=== PATIENT | male | born 1965 | race American Indian/Alaskan Native ===

== ENCOUNTER 2022-08-29 12:49 | Outpatient (REF) | payer MEDICARE, MEDICAID, SELFPAY ==
--- NOTE | ~2022-08-29 | XR_ITS ---
EXAMINATION: XR ANKLE, RIGHT CLINICAL INFORMATION: Pain right ankle and joints. COMPARISON: None. TECHNIQUE: AP, lateral, and mortise views of the right ankle. FINDINGS: There is no visible acute fracture, dislocation or subluxation. No bony erosive changes. Small enthesophyte is seen along the distal fibula. The ankle mortise and subtalar joints are normal. The small calcaneal heel and retrocalcaneal enthesophyte. Minimal soft tissue swelling is seen posterior to the calcaneus. XR/XR ankle RT min 3V IMPRESSION: Small calcaneal heel and retrocalcaneal enthesophytes. Minimal soft tissue swelling posterior to the calcaneus. No visible acute fracture or dislocation seen.
== END 2022-08-29 12:50 | disposition home or self-care (01) ==
LOC: HO.HOSX 12:49
PROVIDERS: Visit Provider Physician Assistant
DX: S86.011A Strain of right Achilles tendon, initial encounter (principal); X58.XXXA Exposure to other specified factors, initial encounter; Y93.9 Activity, unspecified; Y92.9 Unspecified place or not applicable; Y99.9 Unspecified external cause status
CPT/HCPCS: 73610; 99202

== ENCOUNTER 2023-06-14 13:56 | Outpatient (AMB) | payer MEDICARE, MEDICAID, SELFPAY ==
[2023-06-14 13:59] VITALS: BP 118/72; PULSE 90; O2SAT 98; BMI 32.3
--- NOTE | 2023-06-14 13:59 | A.OFFPC_ITS ---
Vital Signs 06/14/23 13:59 Height 6 ft Weight 238 lb BMI 32.3 BP 118/72 Blood Pressure Location Lt brachial Position Sitting Pulse 90 Pulse Source Pulse Oximeter Pulse Oximetry (%) 98 Oxygen Delivery Method Room Air Intake Visit Reasons: 6 mth f/ u Business Intelligence Administrator: Not Required per policy Accompanied by: Self / Same As Patient Allergies aspirin [ASA] Allergy (Unknown, Verified 06/14/23 13:59) BLEEDING ibuprofen [From MOTRIN] Allergy (Unknown, Verified 06/14/23 13:59) BLEEDING nortriptyline [NORTRIPTYLINE] Allergy (Unknown, Verified 06/14/23 13:59) PSYCHOSIS Medication List - Last Reconciled 06/14/23 by Warner Metz MD ascorbate calcium (vitamin C) 500 mg PO BID cholecalciferol (vitamin D3) (Vitamin D3) 10 mcg PO DAILY cyclobenzaprine 10 mg PO Q8H diphenhydramine-acetaminophen 12.5-325 mg (Percogesic) tabs PO [lions gen PO] lisinopril 20 mg PO DAILY mag [id number] rt xt 500-3,000-150 mg-unit-mg tabs PO omeprazole 20 mg PO DAILY omeprazole 20 mg PO DAILY zinc gluconate 50 mg PO DAILY Tobacco use date assessed: 11/26/22 Dental Screening Dental Screen Date: 06/14/23 Did you have a dental visit in the last 12 months?: No Did you have a dental problem in the last 6 months where you did not have access to dental care?: No Was dental information given to patient?: Patient has dentist HPI 6 mth f/ u HPI Details GERD on Rx; doing well; complint [facility] Medical History (Updated 06/14/23 @ 14:28 by Warner Metz MD) Obesity Failed back syndrome Hypertension Chronic GERD COPD (chronic obstructive pulmonary disease) Surgical History History of neck surgery History of esophageal dilatation History of eye surgery History of ankle surgery History of rectal surgery H/O repair of rotator cuff Family History Father No problems noted. Mother Medical history unknown Brother Leukemia Brother Motor vehicle accident Social History (Reviewed 06/14/23 @ 14:00 by SUSHMA [place] Housing: Apartment Alcohol intake: never Patient Tobacco Use Status: Former Tobacco user Tobacco use type: Cigarette e-Cigarette/Vaping Use: Never Used Second Hand Smoke Exposure: No service: Yes Current occupational status: disabled Cognitive needs: No Hearing needs: No Vision needs: No Questionnaire PHQ-9 Over the last 2 weeks, how often have you been bothered by any of the following problems? 1. Little interest or pleasure in doing things: not at all 2. Feeling down, depressed, or hopeless: not at all 3. Trouble falling or staying asleep, or sleeping too much: not at all 4. Feeling tired or having little energy: not at all 5. Poor appetite or overeating: not at all 6. Feeling bad about yourself - or that you are a failure or have let yourself or your family down: not at all 7. Trouble concentrating on things, such as reading the newspaper or watching television: not at all 8. Moving or speaking so slowly that other people could have noticed. Or the opposite - being so fidgety or restless that you have been moving around a lot more than usual: not at all 9. Thoughts that you would be better off or of hurting yourself in some way: not at all Total score: 0 Depression Screening Interpretation: Negative 01833 - PHQ-9 Billing: Yes Source: Developed by Drs. Alex Schuster, Nathalie Ellis, Ari Mcnamara and colleagues, with an educational toña from [employer]. Thrive Questionnaire Date Thrive assessed: 11/26/22 AUDIT C Alcohol Use Questionnaire (AUDIT-C) 1. How often do you have a drink containing alcohol?: Never 3. How often do you have six or more drinks on one occasion?: Never Total Score: 0 Score Reviewed/Action Taken: Yes JOSE-7 AMB Questionnaire JOSE-7 Date JOSE - 7 assessed: 11/26/22 Source: Developed by Drs. Alex Schuster, Ari Burgos and colleagues, with an educational toña from [employer]. Review of Systems Const Denies chills, Denies headache(s) and Denies weight loss ENT Denies headache(s) Card Denies chest pain, Denies syncope, Denies irregular heart rhythm and Denies dyspnea Resp Denies chest congestion, Denies cough and Denies dyspnea GI Denies abdominal pain, Denies change in stool character, Denies nausea and Denies vomiting Musc Denies deformity and Denies joint swelling Neuro Denies syncope and Denies headache(s) Physical exam (Primary Care) Vital Signs: Last Vital Signs Pulse 90 06/14/23 13:59 BP 118/72 06/14/23 13:59 Pulse Ox 98 06/14/23 13:59 Oxygen Delivery Method Room Air 06/14/23 13:59 BMI result Body Mass Index 32.3 Tobacco/Smoking Status: Tobacco use Status Tobacco use date assessed 11/26/22 06/14/23 14:03 Patient Tobacco Use Status Former Tobacco user 06/14/23 14:03 Tobacco use type Cigarette 06/14/23 14:03 e-Cigarette/Vaping Use Never Used 06/14/23 14:03 PHQ-9: PHQ-9 Score PHQ-9: Total score 0 06/14/23 14:03 Depression Screening Interpretation: Negative Thrive Assessment: Date of Thrive Assessment Date Thrive assessed 11/26/22 06/14/23 14:03 Const General: cooperative, comfortable, no acute distress and alert Neck Neck: Yes no lymphadenopathy Thyroid: Thyroid normal Resp Effort & Inspection: normal respiratory effort Auscultation: clear to auscultation bilaterally Percussion: percussion normal Cardio Jugular venous distension: no JVD Palpation: normal PMI Rate: regular rate Rhythm: regular rhythm Heart sounds: S1 normal heart sound present and S2 normal heart sound present GI Inspection: Yes normal to inspection Palpation (GI): No hepatosplenomegaly present Skin General skin exam: no rashes or lesions noted Extrem General: Yes no clubbing, cyanosis or edema Assessment and Plan Assessment & Plan (1) Chronic GERD: Code(s): K21.9 - Gastro-esophageal reflux disease without esophagitis Plan: stable; same rx Coding Level of Care Code Est Pt Level 3 (05245) Diagnoses Chronic GERD K21.9
== END 2023-06-14 14:15 | disposition home or self-care (01) ==
PROVIDERS: PCP Internal Medicine; Visit Provider Internal Medicine
DX: K21.9 Gastro-esophageal reflux disease without esophagitis (principal)
CPT/HCPCS: 99213

== ENCOUNTER 2023-12-13 13:52 | Outpatient (AMB) | payer MEDICARE, MEDICAID, SELFPAY ==
[2023-12-13 13:53] VITALS: BP 112/62; PULSE 101; O2SAT 93; BMI 33.0
--- NOTE | 2023-12-13 13:53 | MHC.PC.OV ---
Vital Signs 12/13/23 13:53 Height 6 ft Weight 243 lb BMI 33.0 BP 112/62 Blood Pressure Location Lt brachial Position Sitting Pulse 101 H Pulse Source Pulse Oximeter Pulse Oximetry (%) 93 Oxygen Delivery Method Room Air Intake Visit Reasons: 6mth f/u Paste Up Artist Required: No Piccoloist: Not Required per policy Accompanied by: Self / Same As Patient Allergies aspirin [ASA] Allergy (Unknown, Verified 12/13/23 13:54) BLEEDING ibuprofen [From MOTRIN] Allergy (Unknown, Verified 12/13/23 13:54) BLEEDING nortriptyline [NORTRIPTYLINE] Allergy (Unknown, Verified 12/13/23 13:54) PSYCHOSIS Medication List - Last Reconciled 12/13/23 by Warner Metz MD ascorbate calcium (vitamin C) 500 mg PO BID cholecalciferol (vitamin D3) (Vitamin D3) 10 mcg PO DAILY cyclobenzaprine 10 mg PO Q8H diphenhydramine-acetaminophen 12.5-325 mg (Percogesic) tabs PO [lions gen PO] lisinopril 20 mg PO DAILY mag [id number] rt xt 500-3,000-150 mg-unit-mg tabs PO magnesium citrate 100 mg PO DAILY omeprazole 20 mg PO DAILY zinc gluconate 50 mg PO DAILY Tobacco use date assessed: 12/13/23 Dental Screening Dental Screen Date: 12/13/23 Did you have a dental visit in the last 12 months?: Yes Did you have a dental problem in the last 6 months where you did not have access to dental care?: No Was dental information given to patient?: Patient has dentist HPI 6mth f/u HPI Details HTN on Rx; PTST and needs ref for therapy; has a therapy dog [facility] Medical History (Updated 06/14/23 @ 14:28 by Warner Metz MD) Obesity Failed back syndrome Hypertension Chronic GERD COPD (chronic obstructive pulmonary disease) Surgical History History of neck surgery History of esophageal dilatation History of eye surgery History of ankle surgery History of rectal surgery H/O repair of rotator cuff Family History Father No problems noted. Mother Medical history unknown Brother Leukemia Brother Motor vehicle accident Social History Housing: Apartment Alcohol intake: never Patient Tobacco Use Status: Former Tobacco user Tobacco use type: Cigarette e-Cigarette/Vaping Use: Never Used Second Hand Smoke Exposure: No service: Yes Current occupational status: disabled Cognitive needs: No Hearing needs: No Vision needs: Yes (glasses ) Questionnaire PHQ-9 Over the last 2 weeks, how often have you been bothered by any of the following problems? 1. Little interest or pleasure in doing things: several days 2. Feeling down, depressed, or hopeless: more than half the days 3. Trouble falling or staying asleep, or sleeping too much: several days 4. Feeling tired or having little energy: more than half the days 5. Poor appetite or overeating: more than half the days 6. Feeling bad about yourself - or that you are a failure or have let yourself or your family down: several days 7. Trouble concentrating on things, such as reading the newspaper or watching television: more than half the days 8. Moving or speaking so slowly that other people could have noticed. Or the opposite - being so fidgety or restless that you have been moving around a lot more than usual: several days 9. Thoughts that you would be better off or of hurting yourself in some way: not at all Total score: 12 Depression Screening Interpretation: Positive Depression Screening Follow-up: Existing condition Depression Screening Done: Yes 10447 - PHQ-9 Billing: Yes Source: Developed by Drs. Alex Schuster, Nathalie Ellis, Ari Mcnamara and colleagues, with an educational toña from [employer]. Thrive Questionnaire Date Thrive assessed: 12/13/23 I am a: Patient What is your living situation today?: I have a steady place to live Within the past 12 months, did the food you bought not last and you didn't have the money to get more?: Never true Within the past 12 months, did you worry whether your food would run out before you got money to buy more?: Never true Do you have trouble paying for medicines?: No Do you have trouble getting transportation to medical appointments?: No Do you have trouble paying your heating and electricity bill?: No Do you have trouble taking care of your child, family member or friend?: No Do you have trouble with day-to-day activities such as bathing, preparing meals, shopping, managing finances, etc.?: No Are you currently unemployed and looking for a job?: No Are you interested in more education?: No Please select the resources that you would like help with: None THRIVE Score: 0 AUDIT C Alcohol Use Questionnaire (AUDIT-C) 1. How often do you have a drink containing alcohol?: Never 3. How often do you have six or more drinks on one occasion?: Never Total Score: 0 Score Reviewed/Action Taken: Yes JOSE-7 AMB Questionnaire JOSE-7 Date JOSE - 7 assessed: 12/13/23 Feeling nervous, anxious, or on edge: 3 = Nearly every day Not being able to stop or control worryin = More than half the days Worrying too much about different things: 1 = Several days Trouble relaxin = Several days Being so restless that it is hard to sit still: 1 = Several days Becoming easily annoyed or irritable: 3 = Nearly every day Feeling afraid as if something awful might happen: 0 = Not at all Total JOSE-7 score (0-4 normal; 5-9 mild; 10-14 moderate; 15-21 severe): 11 Source: Developed by Drs. Alex Schuster, Nathalie Ellis, Ari Mcnamara and colleagues, with an educational toña from [employer]. JOSE-7 Assessment Billing JOSE-7 Assessment Tool: JOSE-7 Assessment 39428 Review of Systems Const Denies chills, Denies headache(s) and Denies weight loss ENT Denies headache(s) Card Denies chest pain, Denies syncope, Denies irregular heart rhythm and Denies dyspnea Resp Denies chest congestion, Denies cough and Denies dyspnea GI Denies abdominal pain, Denies change in stool character, Denies nausea and Denies vomiting Musc Denies deformity and Denies joint swelling Neuro Denies syncope and Denies headache(s) Physical exam (Primary Care) Vital Signs: Last Vital Signs Pulse 101 H 12/13/23 13:53 BP 112/62 12/13/23 13:53 Pulse Ox 93 12/13/23 13:53 Oxygen Delivery Method Room Air 12/13/23 13:53 BMI result Body Mass Index 33.0 Tobacco/Smoking Status: Tobacco use Status Tobacco use date assessed 12/13/23 12/13/23 13:55 Patient Tobacco Use Status Former Tobacco user 12/13/23 13:55 Tobacco use type Cigarette 12/13/23 13:55 e-Cigarette/Vaping Use Never Used 12/13/23 13:55 PHQ-9: PHQ-9 Score PHQ-9: Total score 12 12/13/23 14:59 Depression Screening Interpretation: Positive Depression Screening Follow-up: Existing condition Thrive Assessment: Date of Thrive Assessment Date Thrive assessed 12/13/23 12/13/23 13:55 Const General: cooperative, comfortable, no acute distress and alert Neck Neck: Yes no lymphadenopathy Thyroid: Thyroid normal Resp Effort & Inspection: normal respiratory effort Auscultation: clear to auscultation bilaterally Percussion: percussion normal Cardio Jugular venous distension: no JVD Palpation: normal PMI Rate: regular rate Rhythm: regular rhythm Heart sounds: S1 normal heart sound present and S2 normal heart sound present GI Inspection: Yes normal to inspection Palpation (GI): No hepatosplenomegaly present Skin General skin exam: no rashes or lesions noted Extrem General: Yes no clubbing, cyanosis or edema Assessment and Plan Assessment & Plan (1) Hypertension: Code(s): I10 - Essential (primary) hypertension Plan: stable; same rx (2) PTSD (post-traumatic stress disorder): Code(s): F43.10 - Post-traumatic stress disorder, unspecified Plan: stble Orders: Referrals Counseling Referral F43.10 - Post-traumatic stress disorder, unspecified Coding Level of Care Code Est Pt Level 3 (29811) Diagnoses Hypertension I10 PTSD (post-traumatic stress disorder) F43.10 Additional Codes JOSE-7 Assessment Billing - JOSE-7 Assessment Tool: JOSE-7 Assessment 22600 ([id number])
== END 2023-12-13 14:38 | disposition home or self-care (01) ==
PROVIDERS: PCP Internal Medicine; Visit Provider Internal Medicine
DX: I10 Essential (primary) hypertension (principal); F43.10 Post-traumatic stress disorder, unspecified
CPT/HCPCS: 99213

== ENCOUNTER 2024-06-24 11:35 | Outpatient (AMB) | payer MEDICARE, MEDICAID, SELFPAY ==
[2024-06-24 11:36] VITALS: BP 114/72; PULSE 103; O2SAT 92; BMI 29.6
--- NOTE | 2024-06-24 11:36 | MHC.PC.OV ---
Vital Signs 06/24/24 11:36 Height 6 ft Weight 218 lb BMI 29.6 BP 114/72 Blood Pressure Location Lt brachial Position Sitting Pulse 103 H Pulse Source Pulse Oximeter Pulse Oximetry (%) 92 Oxygen Delivery Method Room Air Intake Visit Reasons: 3 month f/u Intake Note: Pt seeing therapist for PTSD. Manager Technology Required: No Accompanied by: Self / Same As Patient Allergies aspirin [ASA] Allergy (Unknown, Verified 06/24/24 11:38) BLEEDING ibuprofen [From MOTRIN] Allergy (Unknown, Verified 06/24/24 11:38) BLEEDING nortriptyline [NORTRIPTYLINE] Allergy (Unknown, Verified 06/24/24 11:38) PSYCHOSIS Medication List - Last Reconciled 06/29/24 by Warner Metz MD ascorbate calcium (vitamin C) 500 mg PO BID cholecalciferol (vitamin D3) (Vitamin D3) 10 mcg PO DAILY cyclobenzaprine 10 mg PO Q8H diphenhydramine-acetaminophen 12.5-325 mg (Percogesic) tabs PO fluticasone propionate 50 mcg/actuation (Flonase Allergy Relief) 1 spray intranasal BID [lions gen PO] lisinopril 20 mg PO DAILY magnesium carb,citrate,oxide (Magnesium Complex) mg PO omeprazole 20 mg PO DAILY zinc gluconate 50 mg PO DAILY Tobacco use date assessed: 12/13/23 Dental Screening Dental Screen Date: 12/13/23 HPI 3 month f/u HPI Details HTN on rx; doing well and compliant [facility] Medical History (Updated 06/14/23 @ 14:28 by Warner Metz MD) Obesity Failed back syndrome Hypertension Chronic GERD COPD (chronic obstructive pulmonary disease) Surgical History History of neck surgery History of esophageal dilatation History of eye surgery History of ankle surgery History of rectal surgery H/O repair of rotator cuff Family History Father No problems noted. Mother Medical history unknown Brother Leukemia Brother Motor vehicle accident Social History Housing: Apartment Alcohol intake: never Patient Tobacco Use Status: Former Tobacco user Tobacco use type: Cigarette e-Cigarette/Vaping Use: Never Used Second Hand Smoke Exposure: No service: Yes Current occupational status: disabled Cognitive needs: No Hearing needs: No Vision needs: Yes (glasses ) Questionnaire PHQ-9 Over the last 2 weeks, how often have you been bothered by any of the following problems? 1. Little interest or pleasure in doing things: several days 2. Feeling down, depressed, or hopeless: more than half the days 3. Trouble falling or staying asleep, or sleeping too much: several days 4. Feeling tired or having little energy: more than half the days 5. Poor appetite or overeating: more than half the days 6. Feeling bad about yourself - or that you are a failure or have let yourself or your family down: several days 7. Trouble concentrating on things, such as reading the newspaper or watching television: more than half the days 8. Moving or speaking so slowly that other people could have noticed. Or the opposite - being so fidgety or restless that you have been moving around a lot more than usual: several days 9. Thoughts that you would be better off or of hurting yourself in some way: not at all Total score: 12 Depression Screening Interpretation: Positive Depression Screening Follow-up: Existing condition Depression Screening Done: Yes 90015 - PHQ-9 Billing: Yes Source: Developed by Drs. Alex Schuster, Nathalie Ellis, Ari Mcnamara and colleagues, with an educational toña from [employer] [address] Thrive Questionnaire Date Thrive assessed: 12/13/23 Are you currently unemployed and looking for a job?: I choose not to answer this question AUDIT C Alcohol Use Questionnaire (AUDIT-C) 1. How often do you have a drink containing alcohol?: Never 3. How often do you have six or more drinks on one occasion?: Never Total Score: 0 Score Reviewed/Action Taken: Yes JOSE-7 AMB Questionnaire JOSE-7 Date JOSE - 7 assessed: 12/13/23 Source: Developed by Drs. Alex Schuster, Ari Burgos and colleagues, with an educational toña from [employer] [address] Review of Systems Const Denies chills, Denies headache(s) and Denies weight loss ENT Denies headache(s) Card Denies chest pain, Denies syncope, Denies irregular heart rhythm and Denies dyspnea Resp Denies chest congestion, Denies cough and Denies dyspnea GI Denies abdominal pain, Denies change in stool character, Denies nausea and Denies vomiting Musc Denies deformity and Denies joint swelling Neuro Denies syncope and Denies headache(s) Physical exam (Primary Care) Vital Signs: Last Vital Signs Pulse 103 H 06/24/24 11:36 BP 114/72 06/24/24 11:36 Pulse Ox 92 06/24/24 11:36 Oxygen Delivery Method Room Air 06/24/24 11:36 BMI result Body Mass Index 29.6 Tobacco/Smoking Status: Tobacco use Status Tobacco use date assessed 12/13/23 06/24/24 11:41 Patient Tobacco Use Status Former Tobacco user 06/24/24 11:41 Tobacco use type Cigarette 06/24/24 11:41 e-Cigarette/Vaping Use Never Used 06/24/24 11:41 PHQ-9: PHQ-9 Score PHQ-9: Total score 12 06/24/24 11:44 Depression Screening Interpretation: Positive Depression Screening Follow-up: Existing condition Thrive Assessment: Date of Thrive Assessment Date Thrive assessed 12/13/23 06/24/24 11:41 Const General: cooperative, comfortable, no acute distress and alert Neck Neck: Yes no lymphadenopathy Thyroid: Thyroid normal Resp Effort & Inspection: normal respiratory effort Auscultation: clear to auscultation bilaterally Percussion: percussion normal Cardio Jugular venous distension: no JVD Palpation: normal PMI Rate: regular rate Rhythm: regular rhythm Heart sounds: S1 normal heart sound present and S2 normal heart sound present GI Inspection: Yes normal to inspection Palpation (GI): No hepatosplenomegaly present Skin General skin exam: no rashes or lesions noted Extrem General: Yes no clubbing, cyanosis or edema Coding Level of Care Code Est Pt Level 3 (89108) Diagnoses Hypertension I10 Assessment & Plan Assessment & Plan (1) Hypertension: Code(s): I10 - Essential (primary) hypertension Category: Medical Plan: stable; same rx Medications: New fluticasone propionate 50 mcg/actuation (Flonase Allergy Relief) administer into each nostril 1 spray intranasal BID 16 grams 8RF
== END 2024-06-24 12:06 | disposition home or self-care (01) ==
PROVIDERS: PCP Internal Medicine; Visit Provider Internal Medicine
DX: I10 Essential (primary) hypertension (principal)

== ENCOUNTER → 2024-06-24 11:35 | Outpatient (BNVA) | payer MEDICARE, MEDICAID, SELFPAY | PROVIDERS: PCP Internal Medicine; Visit Provider Internal Medicine | DX: I10 Essential (primary) hypertension (principal); Z79.899 Other long term (current) drug therapy | CPT/HCPCS: 96127; 99212 ==

== ENCOUNTER 2024-11-12 13:12 | Outpatient (AMB) | payer MEDICARE, MEDICAID, SELFPAY ==
--- NOTE | 2024-11-12 13:18 | MHC.PC.OV ---
Vital Signs 11/12/24 13:19 Height 6 ft Weight 225 lb BMI 30.5 BP 130/76 Blood Pressure Location Lt brachial Position Sitting Pulse 95 Pulse Source Pulse Oximeter Temp 96.8 F Temp Source Temporal Artery Scan Pulse Oximetry (%) 95 Oxygen Delivery Method Room Air Intake Visit Reasons: 3 Month F/U Intake Note: Patient is here to follow up on HTN, COPD. 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 Required: No Foreclosure Clerk: Not Required per policy Accompanied by: Self / Same As Patient Allergies aspirin [ASA] Allergy (Unknown, Verified 11/12/24 13:19) BLEEDING ibuprofen [From MOTRIN] Allergy (Unknown, Verified 11/12/24 13:19) BLEEDING nortriptyline [NORTRIPTYLINE] Allergy (Unknown, Verified 11/12/24 13:19) PSYCHOSIS Medication List - Last Reconciled 11/12/24 by Warner Metz MD ascorbate calcium (vitamin C) 500 mg PO BID cholecalciferol (vitamin D3) (Vitamin D3) 10 mcg PO DAILY cyclobenzaprine 10 mg PO Q8H diphenhydramine-acetaminophen 12.5-325 mg (Percogesic) tabs PO fluticasone propionate 50 mcg/actuation (Flonase Allergy Relief) 1 spray intranasal BID [lions gen PO] lisinopril 20 mg PO DAILY magnesium carb,citrate,oxide (Magnesium Complex) mg PO omeprazole 20 mg PO DAILY zinc gluconate 50 mg PO DAILY Tobacco use date assessed: 11/12/24 Dental Screening Dental Screen Date: 11/12/24 Did you have a dental visit in the last 12 months?: Yes Did you have a dental problem in the last 6 months where you did not have access to dental care?: No Was dental information given to patient?: Patient has dentist HPI 3 Month F/U HPI Details HTN on rx; compliant; PTSD with interpersonal challenges [facility] Medical History (Updated 11/12/24 @ 13:54 by Warner Metz MD) Obesity Failed back syndrome Hypertension Chronic GERD COPD (chronic obstructive pulmonary disease) Surgical History History of neck surgery History of esophageal dilatation History of eye surgery History of ankle surgery History of rectal surgery H/O repair of rotator cuff Family History Father No problems noted. Mother Medical history unknown Brother Leukemia Brother Motor vehicle accident Social History Housing: Apartment Alcohol intake: never Patient Tobacco Use Status: Former Tobacco user Tobacco use type: Cigarette e-Cigarette/Vaping Use: Never Used Second Hand Smoke Exposure: Yes service: Yes Current occupational status: disabled Cognitive needs: No Hearing needs: No Vision needs: Yes (glasses ) Questionnaire PHQ-9 Over the last 2 weeks, how often have you been bothered by any of the following problems? 1. Little interest or pleasure in doing things: not at all 2. Feeling down, depressed, or hopeless: not at all 3. Trouble falling or staying asleep, or sleeping too much: not at all 4. Feeling tired or having little energy: not at all 5. Poor appetite or overeating: not at all 6. Feeling bad about yourself - or that you are a failure or have let yourself or your family down: not at all 7. Trouble concentrating on things, such as reading the newspaper or watching television: not at all 8. Moving or speaking so slowly that other people could have noticed. Or the opposite - being so fidgety or restless that you have been moving around a lot more than usual: not at all 9. Thoughts that you would be better off or of hurting yourself in some way: not at all Total score: 0 Depression Screening Interpretation: Negative Depression Screening Done: Yes Source: Developed by Drs. Alex Schuster, Nathalie Ellis, Ari Mcnamara and colleagues, with an educational toña from [employer] Thrive Questionnaire Date Thrive assessed: 11/12/24 I am a: Patient What is your living situation today?: I have a steady place to live Within the past 12 months, did the food you bought not last and you didn't have the money to get more?: Never true Within the past 12 months, did you worry whether your food would run out before you got money to buy more?: Never true Do you have trouble paying for medicines?: No Do you have trouble getting transportation to medical appointments?: No Do you have trouble paying your heating and electricity bill?: No Do you have trouble taking care of your child, family member or friend?: No Do you have trouble with day-to-day activities such as bathing, preparing meals, shopping, managing finances, etc.?: No Are you currently unemployed and looking for a job?: No Are you interested in more education?: No Please select the resources that you would like help with: None Currently or been in a relationship where the following occur: No concerns reported THRIVE Score: 0 AUDIT C Alcohol Use Questionnaire (AUDIT-C) 1. How often do you have a drink containing alcohol?: Never Total Score: 0 JOSE-7 AMB Questionnaire JOSE-7 Date JOSE - 7 assessed: 11/12/24 Feeling nervous, anxious, or on edge: 0 = Not at all Not being able to stop or control worryin = Not at all Worrying too much about different things: 0 = Not at all Trouble relaxin = Not at all Being so restless that it is hard to sit still: 0 = Not at all Becoming easily annoyed or irritable: 0 = Not at all Feeling afraid as if something awful might happen: 0 = Not at all Total JOSE-7 score (0-4 normal; 5-9 mild; 10-14 moderate; 15-21 severe): 0 Source: Developed by Drs. Alex Schuster, Nathalie Ellis, Ari Mcnamara and colleagues, with an educational toña from [employer] Review of Systems Const Denies chills, Denies headache(s) and Denies weight loss ENT Denies headache(s) Card Denies chest pain, Denies syncope, Denies irregular heart rhythm and Denies dyspnea Resp Denies chest congestion, Denies cough and Denies dyspnea GI Denies abdominal pain, Denies change in stool character, Denies nausea and Denies vomiting Musc Denies deformity and Denies joint swelling Neuro Denies syncope and Denies headache(s) Physical exam (Primary Care) Vital Signs: Last Vital Signs Temp 96.8 F 11/12/24 13:19 Pulse 95 11/12/24 13:19 BP 130/76 11/12/24 13:19 Pulse Ox 95 11/12/24 13:19 Oxygen Delivery Method Room Air 11/12/24 13:19 BMI result Body Mass Index 30.5 Tobacco/Smoking Status: Tobacco use Status Tobacco use date assessed 11/12/24 11/12/24 13:22 Patient Tobacco Use Status Former Tobacco user 11/12/24 13:22 Tobacco use type Cigarette 11/12/24 13:22 e-Cigarette/Vaping Use Never Used 11/12/24 13:22 PHQ-9: PHQ-9 Score PHQ-9: Total score 0 11/12/24 13:22 Depression Screening Interpretation: Negative Thrive Assessment: Date of Thrive Assessment Date Thrive assessed 11/12/24 11/12/24 13:22 Currently or been in a relationship where the following occur: No concerns reported Const General: cooperative, comfortable, no acute distress and alert Neck Neck: Yes no lymphadenopathy Thyroid: Thyroid normal Resp Effort & Inspection: normal respiratory effort Auscultation: clear to auscultation bilaterally Percussion: percussion normal Cardio Jugular venous distension: no JVD Palpation: normal PMI Rate: regular rate Rhythm: regular rhythm Heart sounds: S1 normal heart sound present and S2 normal heart sound present GI Inspection: Yes normal to inspection Palpation (GI): No hepatosplenomegaly present Skin General skin exam: no rashes or lesions noted Extrem General: Yes no clubbing, cyanosis or edema Coding Level of Care Code Est Pt Level 3 (13826) Diagnoses Hypertension I10 PTSD (post-traumatic stress disorder) F43.10 Assessment & Plan Assessment & Plan (1) Hypertension: Code(s): I10 - Essential (primary) hypertension Category: Medical Plan: stable; same rx (2) PTSD (post-traumatic stress disorder): Code(s): F43.10 - Post-traumatic stress disorder, unspecified Category: Medical Plan: stable; controlled at present
[2024-11-12 13:19] VITALS: BP 130/76; PULSE 95; TEMP 36; O2SAT 95; BMI 30.5
--- OUTSIDE RECORDS SUMMARY | 2024-11-12 14:06 | XMS_ITS | Clinical Summary ---
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 Role Phone Unavailable Primary Care Provider Unavailabl e Social History Tobacco Use Types Packs/Day Years Used Date Smoking Tobacco: Never Assessed Sex and Gender Information Value Date Recorded Sex Assigned at Not on file Legal Sex Male 2:51 PM EST Gender Identity Not on file Sexual Orientation Not on file Plan of Treatment Health Maintenance Due Date Last Done Comments DTaP,Tdap,and Td Vaccines (1 - Tdap) 1985 Hepatitis B Vaccines (1 of 3 - 19+ 3-dose series) 1985 Pneumococcal Vaccine: 50+ Ye ars (1 of 1 - PCV) 02/15/2016 Zoster Vaccines (1 of 2) 02/15/2016 COVID-19 Vaccine (2023-2 5 season) 2024 Influenza Vaccine (#1) 2024 HIB Vaccines Aged Out No longer eligi ble based on patient's age to complete this topic HPV Vaccines Aged Out No longer eligi ble based on patient's age to complete this topic Hepatitis A Vaccines Aged Out No long er eligible based on patient's age to complete this topic IPV Vaccines Aged Out No longer eligi ble based on patient's age to complete this topic MMR Vaccines Aged Out No longer eligi ble based on patient's age to complete this topic Meningococcal ACWY Vaccine Aged Out N o longer eligible based on patient's age to complete this topic Meningococcal B Vacine Aged Out No lo nger eligible based on patient's age to complete this topic Pneumococcal Vaccine: Pediat rics (0 to 5 Years) and At-Risk Patients (6 to 64 Years) Aged Out No longer eligible b ased on patient's age to complete this topic RSV Immunization Patients Un nickie 20 months Aged Out No longer eligible b ased on patient's age to complete this topic Varicella Vaccines Aged Out No longer eligible based on patient's age to complete this topic
== END 2024-11-12 13:56 | disposition home or self-care (01) ==
PROVIDERS: PCP Internal Medicine; Visit Provider Internal Medicine
DX: I10 Essential (primary) hypertension (principal); F43.10 Post-traumatic stress disorder, unspecified

== ENCOUNTER → 2024-11-12 13:12 | Outpatient (BNVA) | payer MEDICARE, MEDICAID, SELFPAY | PROVIDERS: PCP Internal Medicine; Visit Provider Internal Medicine | DX: I10 Essential (primary) hypertension (principal); F43.10 Post-traumatic stress disorder, unspecified | CPT/HCPCS: 99212 ==

== ENCOUNTER 2025-05-11 14:29 | Outpatient (AMB) | payer MEDICARE, MEDICAID, SELFPAY ==
--- OUTSIDE RECORDS SUMMARY | 2025-05-06 17:30 | XMS_ITS | Continuity of Care Document ---
Author Organization [facility] Address [address] [place] [address]- Care Team Providers Care Classified Advertising Supervisor Name Role Phone Warner Metz MD Primary Care Physician Encounter [facility] Date(s): 05/01/25 - 05/06/[address] [id number] Discharge Disposition: A-D/C Home Attending Physician: Marion Vizcarra MD Admitting Physician: Carissa Light MD Referring Physician: Not on Staff, Referring MD Encounter Type: Disch IP Allergies, Adverse Reactions, Alerts Substance Criticality Severity Reaction Reaction Severity Status ibuprofen 1 ulcers Active nortriptyline psychotic Active aspirin 2 ulcers Active Other Environmental Allergy watery eyes, sneezing Active Aleve Active 1all NSAIDS give extreme gi upset 2hx ulcers. vomits blood when on asa rx Medications Alcohol Pads See Instructions, # 200 each, Refills 0, Tot. Refills 0, Maintenance, Use twice a day during blood glucose check., 05/05/25 10:02:00 AM EDT, Compound, 183, cm, 05/05/25 7:35:00 EDT, Height, 95.1, kg, 05/02/25 0:14:00 EDT, Dry Weight Start Date: 05/05/25 Stop Date: 06/04/25 Status: Ordered Quantity: 200.0 Unit: each Repeat number: 1 cefpodoxime 200 mg oral tablet = 200 mg, By Mouth, Every 12 hours, for 5 days, # 10 tablet, 0 Refills, Acute 05/10/25 10:00:00 AM EDT, 05/05/25 10:00:00 AM EDT, Tablet, [facility]/pharmacy #[id number], Partial fill upon patient request if the prescription is for a schedule II opioid drug., 183, cm, 05/05/25 7:35:00 EDT, Height, 95.1, kg, 05/02/25 0:14:00 EDT, Dry Weight Start Date: 05/05/25 Stop Date: 05/10/25 Status: Ordered Quantity: 10.0 Unit: tablet Repeat number: 1 cyclobenzaprine 10 mg oral tablet 10 mg, 1, tablet, By Mouth, 3 times a day, PRN, # 30 tablet, Refills 0, Maintenance, for spasm, 09/10/17 10:40:06 AM EST Start Date: 09/10/17 Status: Ordered Quantity: 30.0 Unit: tablet Repeat number: 1 Farxiga 10 mg oral tablet 1 tablet = 10 mg, By Mouth, Daily, # 30 tablet, 2 Refills, Maintenance, 05/05/25 10:12:00 AM EDT, Tablet, [facility]/pharmacy #[id number], Partial fill upon patient request if the prescription is for a schedule IIopioid drug., 183, cm, 05/05/25 7:35:00 EDT, Height, 95.1, kg, 05/02/25 0:14:00 EDT, Dry Weight Start Date: 05/05/25 Status: Ordered Quantity: 30.0 Unit: tablet Repeat number: 3 fluticasone 27.5 mcg/inh nasal spray 1 sprays = 27.5 mcg, Nares, Both, Daily, PRN for allergy symptoms, # 10 Gm, 0 Refills, Maintenance,05/02/25 1:52:00 AM EDT, [place], Partial fill upon patient request if the prescription is for a schedule II opioid drug. Start Date: 05/02/25 Status: Ordered Quantity: 10.0 Unit: g Repeat number: 1 fluticasone-vilanterol 200 mcg-25 mcg/inh inhalation powder 1 inhalation, Inhalation, Daily, at the same time every day, # 1 each, 2 Refills, Maintenance, 05/05/25 10:14:00 AM EDT, Powder, [facility]/pharmacy #[id number], Partial fill upon patient request if the prescription is for a schedule II opioid drug., 1 inhalation Inhalation Daily,x30 days,Instr:at the same time e very day, 183, cm, 05/05/25 7:35:00 EDT, Height, 95.1, kg, 05/02/25 0:14:00 EDT, Dry Weight Start Date: 05/05/25 Stop Date: 08/03/25 Status: Ordered Quantity: 1.0 Unit: each Repeat number: 3 Freestyle Lancets See Instructions, # 100 each, Refills 1, Tot. Refills 1, Maintenance, Use twice a day for blood glucose check., 05/05/25 10:02:00 AM EDT, Supply, 183, cm, 05/05/25 7:35:00 EDT, Height, 95.1, kg, 05/02/25 0:14:00 EDT, Dry Weight Start Date: 05/05/25 Stop Date: 07/04/25 Status: Ordered Quantity: 100.0 Unit: each Repeat number: 2 Freestyle Lite Monitor See Instructions, # 1 each, Refills 0, Tot. Refills 0, Maintenance, use as directed for Type 2 Diabetes Mellitus, 05/05/25 10:02:00 AM EDT, Supply, 183, cm, 05/05/25 7:35:00 EDT, Height, 95.1, kg, 05/02/25 0:14:00 EDT, Dry Weight Start Date: 05/05/25 Stop Date: 06/04/25 Status: Ordered Quantity: 1.0 Unit: each Repeat number: 1 Freestyle Lite Test Strips See Instructions, # 100 each, Tot. Refills 5, Maintenance, Use twice a day for blood glucose check., 05/05/25 10:02:00 AM EDT, Supply, 183, cm, 05/05/25 7:35:00 EDT, Height, 95.1, kg, 05/02/25 0:14:00EDT, Dry Weight Start Date: 05/05/25 Stop Date: 06/04/25 Status: Ordered Quantity: 100.0 Unit: each Repeat number: 6 Lansaraus Solostar Pen 100 units/mL subcutaneous solution = 10 units, Subcutaneous Injection, Daily at bedtime, # 10 mL, 2 Refills, Maintenance, 05/05/25 10:12:00 AM EDT, Solution, [facility]/pharmacy #[id number], Partial fill upon patient request if the prescription is for a schedule II opioid drug., 183, cm, 05/05/25 7:35:00 EDT, Height, 95.1, kg, 05/02/25 0:14:00 EDT, Dry Weight Start Date: 05/05/25 Status: Ordered Quantity: 10.0 Unit: mL Repeat number: 3 Lasix 20 mg oral tablet 20 mg, 1, tablet, By Mouth, Daily, # 30 tablet, Refills 0, Tot. Refills 0, Maintenance, 05/06/25 1:07:00 PM EDT, Route to Pharmacy Electronically, [facility]/pharmacy #[id number], Partial fill upon patient requestif the prescription is for a schedule II opioid drug., 183, cm, 05/05/25 19:33:00 EDT, Height, 95.1, kg, 05/02/25 0:14:00 EDT, Dry Weight Start Date: 05/06/25 Status: Ordered Quantity: 30.0 Unit: tablet Repeat number: 1 lisinopril 20 mg oral tablet 20 mg, 1, tablet, By Mouth, Daily, # 30 tablet, Refills 0, Maintenance, 05/02/25 1:48:00 AM EDT, Partial fill upon patient request if the prescription is for a schedule II opioid drug. Start Date: 05/02/25 Status: Ordered Quantity: 30.0 Unit: tablet Repeat number: 1 omeprazole 20 mg oral delayed release tablet 1 tablet = 20 mg, By Mouth, Daily, # 90 tablet, 0 Refills, Maintenance, 05/02/25 1:50:00 AM EDT, CR Tablet, Partial fill upon patient request if the prescription is for a schedule II opioid drug. Start Date: 05/02/25 Status: Ordered Quantity: 90.0 Unit: tablet Repeat number: 1 Pen [place], 31 G x 8 mm BD Ultra Fine III See Instructions, # 100 each, Refills 1, Tot. Refills 1, Maintenance, Use twice a day for blood glucose check., 05/05/25 10:02:00 AM EDT, Supply, 183, cm, 05/05/25 7:35:00 EDT, Height, 95.1, kg, 05/02/25 0:14:00 EDT, Dry Weight Start Date: 05/05/25 Stop Date: 07/04/25 Status: Ordered Quantity: 100.0 Unit: each Repeat number: 2 predniSONE 10 mg oral tablet See Instructions, 30 mg for 3 days then 20 mg for 3 days then 10 mg for 3 days then stop., # 18 tablet, 0 Refills, Maintenance, 05/06/25 1:07:00 PM EDT, Tablet, [facility]/pharmacy #[id number], Partial fill upon patient request if the prescription is for a schedule II opioid drug., 183, cm, 05/05/25 19:33:00 EDT, Height, 95.1, kg, 05/02/25 0:14:00 EDT, Dry Weight Start Date: 05/06/25 Status: Ordered Quantity: 18.0 Unit: tablet Repeat number: 1 ProAir HFA 90 mcg/inh inhalation aerosol 1 inhalation = 90 mcg, Inhalation, Every 6 hours, PRN as needed for shortness of breath or wheezing, # 18 Gm, 0 Refills, Maintenance, 05/05/25 10:14:00 AM EDT, Aerosol, [facility]/pharmacy #[id number], Partial fill upon patient request if the prescription is for a schedule II opioid drug., 1 inhalation Inhalation Every 6 hours,PRN:as needed for shortness of breath or wheezing, 183, cm, 05/05/25 7:35:00 EDT, Height, 95.1, kg, 05/02/25 0:14:00 EDT, Dry Weight Start Date: 05/05/25 Status: Ordered Quantity: 18.0 Unit: g Repeat number: 1 Vitamin C 500 mg oral tablet 1 tablet = 500 mg, By Mouth, Daily, # 30 tablet, 0 Refills, Maintenance, 09/10/17 10:39:07 AM EST, Tablet Start Date: 09/10/17 Status: Ordered Quantity: 30.0 Unit: tablet Repeat number: 1 Vitamin D3 1000 intl units oral capsule 1 capsule = 1,000 International_Units, By Mouth, Daily, # 75 capsule, 0 Refills, Maintenance, 09/10/17 10:38:58 AM EST, Capsule Start Date: 09/10/17 Status: Ordered Quantity: 75.0 Unit: capsule Repeat number: 1 Problem List Condition Confirmation Course Effective Dates Status Health St atus Informant Multiple joint pain Confirmed Active Myofascial pain syndrome Confirmed Active Results Radiology Reports * Exam Date Time Procedure Performing Provider Status 05/03/25 9:00 PM US Doppler Ext Lower Venous Bilat Auth (Verified) Notes: (US Doppler Ext Lower Venous Bilat) Reason For Exam: Swelling Extremities RESULT: US Doppler Ext Lower Venous Bilat US Doppler Ext Lower Venous Bilat Reason: Swelling Extremities; Clinical Question(s): Thrombosis COMPARISON: None IMAGING TECHNIQUE: Ultrasound of the veins from the groin through the calf was performed using grayscale, color, and spectral Doppler ultrasound assessing for complete compressibility and normal flowcharacteristics. FINDINGS: RIGHT LOWER EXTREMITY: Common femoral vein: Patent. No thrombosis. Femoral vein: Patent. No thrombosis. Popliteal vein: Patent. No thrombosis. Gastrocnemius veins: The visualized portions are patent without evidence of thrombosis. Peroneal veins: The visualized portions are patent without evidence of thrombosis. Posterior tibial veins: The visualized portions are patent without evidence of thrombosis. LEFT LOWER EXTREMITY: Common femoral vein: Patent. No thrombosis. Femoral vein: Patent. No thrombosis. Popliteal vein: Patent. No thrombosis. Gastrocnemius veins: The visualized portions are patent without evidence of thrombosis. Peroneal veins: The visualized portions are patent without evidence of thrombosis. Posterior tibial veins: The visualized portions are patent without evidence of thrombosis. OTHER FINDINGS: There is diffuse edema. IMPRESSION: No evidence of deep venous thrombosis. WSN: [id number] Ordering Physician: Felipa Ruiz Dictated By: Alex Rivero DO Dictated Date/Time: 05/03/25 9:28 pm Reviewed By: Alex Rivero DO Signed By: Alex Rivero DO Signed Date/Time: 05/03/25 9:28 pm Transcribed By: MELLISSA Transcribed Date/Time: 05/03/25 9:27 pm * Exam Date Time Procedure Performing Provider Status 05/02/25 7:[address] Angio Chest Modified Notes: (CT Angio Chest) Reason For Exam: PE Suspected, Intermediate Prob, Positive D-Dimer;Other: RESULT: CT Angio Chest CT Angio Chest INDICATION: Positive D-Dimer; Clinical Question(s): Pulmonary Embolism; TECHNIQUE: Spiral CTA of the chest was performed after rapid IV contrast administration without cardiac gating, triggered by an [place] on the main pulmonary artery. Images are formatted in multiple planes using 2-D multiplanar and 3-D maximum intensity projection. 100 cc of Isovue 300 was administered intravenously. Weight-based protocol using automatic tube modulation was used to optimize exposure parameters. CTDIvol Body: 12.04 mGy, DLP Body: 1347 mGy*cm. COMPARISONS: 06/17/2018. ANGIOGRAPHIC FINDINGS: Exam is of somewhat limited diagnostic quality due to patient respiratory motion and suboptimal bolus timing. No evidence of a central through lobar pulmonary embolism. Segmental and subsegmental emboli are difficult to exclude although none are identified. No aneurysm or acute aortic abnormality seen on this study performed without cardiac gating. NON-ANGIOGRAPHIC FINDINGS: Trachea and airways: Patent without evidence of tracheal or endobronchial lesion. Lungs and pleura: Diffuse increase in interstitial markings and groundglass opacities throughout the lungs bilaterally with underlying emphysematous changes. No effusion or pneumothorax. Mediastinum and rosanne: Borderline enlarged mediastinal nodes are new/increasing compared to previous, one of the largest is the subcarinal node measuring up to 1.8 cm short axis dimension on axial image 53 of series 5. Heart: Normal heart size. No pericardial effusion. Moderate coronary artery calcification. Chest wall soft tissues: No acute abnormality. Upper abdomen: No acute abnormality. Diffuse hepatic steatosis. Bones: No acute abnormalities, no suspicious osseous lesions. IMPRESSION: 1. Limited diagnostic quality exam due to respiratory motion without evidence of a central through lobar pulmonary embolism. Segmental and subsegmental emboli are not excluded on this examination. 2. Diffuse airspace and interstitial opacities, differential includes pneumonitis or pulmonary edema pattern. However no pleural effusions are identified. 3. Multiple mildly enlarged mediastinal nodes may be reactive. 4. Other chronic findings as noted. WSN: [id number] Ordering Physician: Yadira Sanders Dictated By: Eduard Larios MD Dictated Date/Time: 05/02/25 7:47 pm Reviewed By: Eduard Larios MD Signed By: Eduard Larios MD Signed Date/Time: 05/02/25 7:47 pm Transcribed By: MELLISSA Transcribed Date/Time: 05/02/25 7:40 pm * Exam Date Time Procedure Performing Provider Status 05/01/25 4:47 PM Chest 2 Views Frontal and Lat Auth (Verified) Notes: (Chest 2 Views Frontal and Lat) Reason For Exam: Shortness of Breath RESULT: Chest 2 Views Frontal and Lat Chest 2 Views Frontal and Lat Hx of Present Illness: 1 week SOB, known COPD hx, today wanted to be seen, thinks smoke in air may have aggravated his breathing; Reason: Shortness of Breath; Clinical Question(s): CHF COMPARISON: None. FINDINGS: Patchy opacities bilaterally with more dense opacification in the right lung base. No significant pleural effusion. No pneumothorax. IMPRESSION: Suspected vascular congestion but possible superimposed pneumonia in the right lung base. WSN: [id number] Ordering Physician: Brad Aguirre Dictated By: Pietro Guerra MD Dictated Date/Time: 05/01/25 5:05 pm Reviewed By: Pietro Guerra MD Signed By: Pietro Guerra MD Signed Date/Time: 05/01/25 5:05 pm Transcribed By: MELLISSA Transcribed Date/Time: 05/01/25 4:50 pm Social History Social History Type Response Smoking Status Current every day sm oker; Tobacco user in household: No; Type: Cigarettes; Tobacco use times per day: 3-5 cigarettes per day; entered on: 09/10/17 Sex Sex Representation Male (finding) History and physical note * Kuldeep PHELPS, Carissa: PERFORM, MODIFY Event Display: History and Physical Hospital Authored Date: Patient: ??SHAWNA STARK ? Age:??60 Years?Sex:??Male?:??1965?? Chief Complaint/Reason for Consultation 1 week SOB, known COPD hx, today wanted to be seen, thinks smoke in air may have aggravated his breathing History of Present Illness ?? Patient??is a 60-year-old male with a history of COPD, fibromyalgia, reflex sympathetic dystrophy, coronary artery disease, and alcoholism in remission presenting with shortness for the past??week.? The patient has been experiencing shortness of breath for the past week, that was slow in??onset, progressive which he attributes to his COPD. Initially patient thought it may be secondary to the poor air quality.??In ED patient reported worsening shortness of breath especially with exertion. ??Informs that he cannot lay flat??properly.?He also reports waking up short of breath and noticing swelling in his legs. He has not had any fevers but did experience cold sweats today. ??Patient reports that he has been hydrating himself well.patient informed that in remote past he??was??previously on Lasix but had to be hospitalized for 2 weeks due to severe potassium depletion.?He quit smoking after being diagnosed with COPD??patient also volunteered information that. 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 Denies any??palpitations, bleeding seizures or loss of consciousness. ?? Vitals reviewed hemodynamically stable heart rate 115/min, saturating 97% on 4 L of nasal cannula oxygen. ?? Labs reviewed normal serum sodium normal potassium bicarbonate within acceptable range serum glucose 339 mg/dL. ?? Imaging studies reviewed IMPRESSION: Chest x-ray shows Suspected vascular congestion but possible superimposed pneumonia in the right lung base. ?? In ED patient received vancomycin and azithromycin.?? He also received 1 dose of 40 mg Lasix IV sb dose of Zosyn. ?? Admitted to medicine for further diagnosis and management. Review of Systems ?? General +: Fatigue, Malaise. ??Denies: Chills HEENT Denies: Head trauma, Visual Changes, Eye Pain, Ear Pain Pulmonary Positive for cough and shortness of breath. Cardiovascular Denies: Chest Pain, Palpitations, Edema.?? Gastrointestinal Denies: Nausea, Vomiting, Abdominal Pain, Diarrhea, Constipation, Melena.?? Genitourinary Denies: Burning, Dysuria, Discharge, Hematuria Musculoskeletal Denies: Neck Pain, Shoulder Pain, Arm Pain. Neurological Denies: Weakness, Numbness, Change in Speech, loss of consciousness.?? Skin: Denies: Discoloration, rash?? Psych Denies: Depression, suicidal ideation Objective Vital Signs?? Temperature: 98.1 DegF (05/01/25 15:00:00) Temperature Route: Oral (05/01/25 15:00:00) Pulse Rate:??115 bpm??High (05/01/25 15:00:00) Respiratory Rate:??31 br/min??High (05/01/25 15:00:00) Systolic Blood Pressure: 107 mm Hg (05/01/25 15:00:00) Diastolic Blood Pressure: 79 mm Hg (05/01/25 15:00:00) Pulse Pressure: 28 mm Hg (05/01/25 15:00:00) Oxygen Saturation: 97 % (05/01/25 15:12:00) Liters per Minute: 4 L/min (05/01/25 15:12:00) Mode of Delivery (Oxygen): Nasal cannula (05/01/25 15:12:00) ? Intake/Output? No Data Available ? Physical Exam General Appearance: Alert, Oriented, ??in no distress??on supplemental nasal cannula oxygen HEENT: No Thyromegaly, No JVD Lungs: ??Breath sounds Audible equal B/L,??faint audible crackles??bilateral, bronchial breath sounds right lower base Cardiovascular: Regular Rate, Normal S1, Normal S2. Abdomen: Soft, Non distended, No tenderness. Assessment/Plan Hypoxic respiratory failure (J96.91): CAP (community acquired pneumonia) (J18.9):?? Mild??COPD exacerbation (J44.1):?? Suspect??CHF (congestive heart failure) (I50.9):?? Briefly patient presents with??shortness of breath, no fever, white cell count elevated to 15.3.?? Gives history of orthopnea and PND but??proBNP??only 69. Chest x-ray more consistent with right??sided??process??suspicious for pneumonia, overall??congested appearing??hinting towards pulmonary edema. Patient has history of smoking??known COPD??although no??wheezing audible on physical exam.?? Will manage with??IV antibiotics ceftriaxone azithromycin.?? Urine Legionella strep antigen sputum culture. Nebulization pulmonary support??additional Lasix echocardiogram has been requested Daily weight intake output monitoring??low-salt diet.?? Given history of exposures To sick coworkers??check respiratory viral panel including flu AB RSV COVID-19. Taper off oxygen astolerated??to maintain saturation of 92%.. ?? Fibromyalgia (M79.7):??. Continue home medications gabapentin and Flexeril. ?? VTE Prophylaxis:??. Subcu Lovenox ?? Tobacco Use Treatment:??. As needed nicotine patch ?? Discharge Planning:??. ?? Ongoing Medical Necessity:??. ?? Code Status:??. Full code ? Histories Allergies Allergies ?(Active and Proposed Allergies Only) nortriptyline? (Severity: Unknown severity, Onset: Unknown) ?Reactions: psychotic Aleve? (Severity: Unknown severity, Onset: Unknown) Other Environmental Allergy? (Severity: Unknown severity, Onset: Unknown) ?Reactions: watery eyes, sneezing ibuprofen? (Severity: Unknown severity, Onset: Unknown) ?Reactions: ulcers ?Comments: all NSAIDS give extreme gi upset aspirin? (Severity: Unknown severity, Onset: Unknown) ?Reactions: ulcers ?Comments: hx ulcers. vomits blood when on asa rx ? Past Medical History/Problem List Active Problems(2) Multiple joint pain Myofascial pain syndrome ? Past Surgical History No surgery history documented. ? Social History Alcohol Details:??Use: Never. Substance Abuse Details:??Use: Never. Tobacco Details:??Current every day smoker, Tobacco user in household: No. ??Type: Cigarettes. ??Tobacco use times per day: 3-5 cigarettes per day. ? Family History No Family History documented. ? Medications Home Medications Ascorbic Acid (Vitamin C 500 mg oral tablet)??1 tab(s) 500 Milligram By Mouth Daily Cholecalciferol (Vitamin D3 1000 intl units oral capsule)??1 capsule 1,000 International Unit By Mouth Daily Cyclobenzaprine (cyclobenzaprine 10 mg oral tablet)??10 Milligram 1 tablet By Mouth 3 times a day as needed for spasm Gabapentin??200 Milligram By Mouth 2 tablets in the am ? Results Recent Labs BLOOD COUNT & DIFF WBC 15.3 k/mm3 (High)?? 05/01/2025 15:44 RBC 5.11 m/mm3 ()?? 05/01/2025 15:44 Hgb 14.4 Gm/dL ()?? 05/01/2025 15:44 Hct 44.1 % ()?? 05/01/2025 15:44 MCV 86.3 femtoliters ()?? 05/01/2025 15:44 MCH 28.2 pg ()?? 05/01/2025 15:44 MCHC 32.7 Gm/dL (Low)?? 05/01/2025 15:44 Platelet Count 360 k/mm3 ()?? 05/01/2025 15:44 RDW-SD 41.0 femtoliters ()?? 05/01/2025 15:44 MPV 10.9 femtoliters ()?? 05/01/2025 15:44 Nucleated RBC (Automated) 0.0 #/100 WBC'S ()?? 05/01/2025 15:44 Abs. NRBC 0.0 k/mm3 ()?? 05/01/2025 15:44 Abs. Neut 13.0 k/mm3 (High)?? 05/01/2025 15:44 Abs. Lymph 1.1 k/mm3 ()?? 05/01/2025 15:44 Abs. [place] 1.0 k/mm3 ()?? 05/01/2025 15:44 Abs. Eo 0.1 k/mm3 ()?? 05/01/2025 15:44 Abs. Baso 0.0 k/mm3 ()?? 05/01/2025 15:44 Neut % 84.6 % (High)?? 05/01/2025 15:44 Lymph % 7.3 % (Low)?? 05/01/2025 15:44 [place] % 6.6 % ()?? 05/01/2025 15:44 Eos % 0.5 % ()?? 05/01/2025 15:44 Baso % 0.3 % ()?? 05/01/2025 15:44 Imm Gran 0.7 % ()?? 05/01/2025 15:44 Abs. Imm Gran 0.1 k/mm3 ()?? 05/01/2025 15:44 ?? CARDIAC Nt-Probnp 69 pg/mL ()?? 05/01/2025 15:44 High Sensitivity Troponin (HSTnT) 16 ng/L ()?? 05/01/2025 15:44 ?? CHEM GENERAL Sodium 134 mmol/L ()?? 05/01/2025 15:44 Potassium 4.7 mmol/L ()?? 05/01/2025 15:44 Chloride 95 mmol/L (Low)?? 05/01/2025 15:44 Bicarbonate Level 23 mmol/L ()?? 05/01/2025 15:44 Anion Gap 16 mmol/L ()?? 05/01/2025 15:44 Glucose Level 339 mg/dL (High)?? 05/01/2025 15:44 BUN 10 mg/dL ()?? 05/01/2025 15:44 Creatinine-Blood 0.98 mg/dL ()?? 05/01/2025 15:44 Estimated GFR Creatinine 89 ML/MIN/1.73 M2 ()?? 05/01/2025 15:44 Calcium 8.5 mg/dL (Low)?? 05/01/2025 15:44 Protein, Total 7.2 Gm/dL ()?? 05/01/2025 15:44 Albumin 3.6 Gm/dL ()?? 05/01/2025 15:44 AG Ratio 1.0 ()?? 05/01/2025 15:44 Alkaline Phosphatase 90 units/L ()?? 05/01/2025 15:44 AST (SGOT) 12 units/L ()?? 05/01/2025 15:44 ALT (SGPT) 9 units/L ()?? 05/01/2025 15:44 Bilirubin, Total 0.4 mg/dL ()?? 05/01/2025 15:44 Lactate 1.7 mmol/L ()?? 05/01/2025 15:44 ?? HEME OTHER Hold Blue Top SPECIMEN DISCARDED AFTER 4 HOURS. ()?? 05/01/2025 15:44 ?? MISC. CHEMISTRY Hold Gel Top SPECIMEN DISCARDED AFTER 1 WEEK ()?? 05/01/2025 15:44 ?? URINE OTHER Est Creatinine Clearance 89.21 mL/min ()?? 05/01/2025 16:16 ? EKG study * Event Display: EKG Authored Date: * Event Display: ECG 12-Lead Authored Date: Please click on pdf link to open report * Event Display: ECG 12-Lead Authored Date: Ventricular Rate: 116 BPM Atrial Rate: 116 BPM P-R Interval: 158 ms QRS Duration: 90 ms Q-T Interval: 328 ms QTC Calculation(Bazett): 455 ms P [place]: 46 degrees R [place]: 26 degrees T [place]: 33 degrees Sinus tachycardia Otherwise normal ECG When compared with ECG of 20-Jun-2006 10:28, No significant change was found Confirmed by KING REYEZ MD ([id number]) on 05/04/2025 8:57:49 PM [place]: KING REYEZ MD Heart * Event Display: Echocardiogram - Complete Authored Date: Transthoracic Echocardiography Report (TTE) Patient Demographics Patient Name SHAWNA STARK Date of Study 05/03/2025 Corporate Gender Male Facility Race .[id number] Ethnicity Date of 1965 Height: 72 inches Age 60 year(s) Weight: 200 pounds Accession Number [id number] BSA: 2.13 m2 Room Number EDHX BMI: 27.13 kg/m2 Referring Kuldeep Ferrer MD Interpreting Rowan Valles Physician Physician Paul PHELPS [address] Worker [employer] [facility] Susan Indications Heart failure. Study Data Type of Study TTE procedure:Echo Complete-(Doppler, Colorflow) with Contrast. Study Date05/03/2025 Start Time: 01:22 PM Study Location: [facility] Echo Study Status: Bedside Patient Status: Routine Technical Quality: Technically difficult due to body habitus. Blood Pressure:107/74 mmHg EKG: Sinus tachycardia Variable [id number] Contrast Medium: Definity. Amount - 2 ml 2D Measurements LV Diastolic Dimension: 4.4 cm LV Systolic Dimension: 3.7 cm LV Septum Diastolic: 1.4 cm LV PW Diastolic: 1.4 cm LA Dimension: 3.5 cm LA ESV (BP):39.8 ml LVOT Stroke Volume: 120.7 ml LA ESV Index: 19 ml/m2 Stroke Volume Index56.67 ml/m2 LVOT: 3.1 cm Ascending Aorta:3.9 cm Doppler Measurements AV Peak Velocity: 118 cm/s AV Peak Gradient: 5.57 mmHg AV Mean Gradient: 3 mmHg MV Mean Gradient: 3 mmHg AV VTI:16.9 cm MV Area (continuity): 6.57 cm2 LVOT Peak Velocity: 77 cm/s LVOT VTI16 cm AV Area (Continuity):7.14 cm2 PV Peak Velocity: 84.2 cm/s AV P1/2t: 478 msec PV Peak Gradient: 2.84 mmHg TR Velocity:61.1 cm/s TR Gradient:1.49 mmHg E' Septal Velocity: 6.74 cm/s E' Lateral Velocity: 9.9 cm/s Cardiac Anatomy Left Ventricle/Interventricular Septum The left ventricular size is normal. The left ventricular wall thickness is mildly increased. The left ventricular ejection fraction is 55% by bi-plane Small's method. No obvious wall motion abnormalities seen on limited views. Unable to assess diastolic function due to E/A fusion . Left Atrium/Interatrial Septum The left atrium is normal in size. Aortic Valve The aortic valve is tricuspid. There is no aortic stenosis . There is trace aortic regurgitation. Mitral Valve The mitral valve is normal in structure and function. There is trace mitral regurgitation. Aorta The aortic root and proximal ascending aorta are normal in size when indexed for BSA Right Ventricle The right ventricular size and function appears grossly normal. Right Atrium The right atrium is normal in size. Pulmonic Valve The pulmonic valve is not well visualized. There is no pulmonic stenosis; trace insufficiency. Tricuspid Valve The tricuspid valve is normal in structure and function. There is trace regurgitation. Pumonary Artery An accurate pulmonary artery pressure could not be obtained. Venous Structures The inferior vena cava is poorly visualized. Pericardium/Extracardiac There is no significant pericardial effusion. Summary The left ventricular size is normal. The left ventricular wall thickness is mildly increased. The left ventricular ejection fraction is 55% by bi-plane Small's method. No obvious wall motion abnormalities seen on limited views. Unable to assess diastolic function due to E/A fusion . The right ventricular size and function appears grossly normal. There is no significant valve disease. Comparison No prior study available for comparison. Signature * Event Display: Echocardiogram - Complete Authored Date: [id number] Cardiology * Event Display: Cardiac Rhythm Strips Authored Date: Hospital Progress note * Desi Calvo RN: PERFORM, SIGN, VERIFY Event Display: Progress Note Hospital Authored Date: [id number] Patient: SHAWNA STARK Age: 60 years Sex: Male : 1965 Associated Diagnoses: None Author: Desi Calvo RN Findings Problem Related to Alteration in Endocrine : Alteration in Endocrine Function/new 05/06/2025 17:00 EDT Alteration in Endocrine Related to Diabetes Goals & Outcomes, Endocrine Blood glucose levels will stabilize during hospitalization, Pt willreceive/maintain adequate nutrition status, Pt will resume/maintain adequate cardiac output, Pt will maintain adequate GI/ function appropriate for pt, Vital signs, electrolytes & blood glucosewill stabilize, Pt will be maintained on sc insulin & appropriate diet, Pt will resume regular activities, Pt will verbalize psychosocial implications of diabetes, Pt/caregiver will start home management learning Interventions, Endocrine Assess/monitor GI/ status, Assess skin turgor, temperature & capillary refill, DVT prophylaxis as ordered, Maintain IV access, Teach Pt/caregiver signs & symptoms of hypoglycemia, Teach Pt/caregiver signs & symptoms of hyperglycemia, Teach Pt/caregiver use of home glucose monitoring BH Goals/Interventions, Endocrine Yes Endocrine, Problem Start 05/02/2025 10:37 Reviewed Plan with, Endocrine Patient Patient Progression, Endocrine Pt progressing according to plan . Alteration in Respiratory Function (new) : Alteration in Respiratory Function/new 05/06/2025 17:00 EDT Alteration in Resp Status Related to COPD, Pneumonia Goals & Outcomes, Respiratory Pt will maintain/resume baseline physical assessment, Pt will demonstrate proper technique w/self care procedures Interventions, Respiratory Assess for and report S&S of respiratory distress, Position for comfort & optimal oxygenation, Teach/encourage use of incentive spirometer, Teach purse lip breathing as needed for breathing retraining, Teach tripod positioning to promote air exchange Goals/Interventions, Respiratory Yes Respiratory, Problem Start 05/02/2025 3:14 Reviewed Plan with, Respiratory Patient Patient Progression, Respiratory Patient progressing according to plan . Nursing Data Vital Signs : VITAL SIGNS SECTION 05/06/2025 13:00 EDT Temperature 97.5 DegF Temperature Route Axillary Pulse Rate 106 bpm H Respiratory Rate 18 br/min Systolic Blood Pressure 101 mm Hg Diastolic Blood Pressure 82 mm Hg Blood pressure sites Arm, left Pulse Pressure 19 mm Hg Oxygen Saturation 99 % Liters per Minute 2 L/min Mode of Delivery (Oxygen) Nasal cannula . Narrative/Incidental Alert and oriented x4. Independent in room. Denies pain. Bed in lowest, locked position with call barriga in reach. Makes needs known. Plan of care ongoing, patient presents no concerns or questions. Medicated per NOV. . * Andressa Heath RN: VERIFY, PERFORM, SIGN Event Display: Progress Note Hospital Authored Date: Patient: SHAWNA STARK Age: 60 years Sex: Male : 1965 Associated Diagnoses: None Author: Andressa Heath RN Findings Problem Related to Alteration in Cardiac Function (new) : Alteration in Cardiac Function/new 05/05/2025 22:00 EDT Alteration in Cardiac Status Related to Heart failure Goals & Outcomes, Cardiac Status Pt will resume/maintain adequate cardiac output Cardiac Interventions Implemented Assess/monitor cardiac status Goals/Interventions, Cardiac Yes Cardiac, Problem Start 05/02/2025 3:13 Reviewed Plan with, Cardiac Status Patient Patient Progression, Cardiac Status Patient progressing according to plan Comment: Cardiac Status see pn . Nursing Data Vital Signs : VITAL SIGNS SECTION 05/05/2025 19:33 EDT Temperature 97.9 DegF Temperature Route Oral Pulse Rate 114 bpm H Respiratory Rate 20 br/min Systolic Blood Pressure 120 mm Hg Diastolic Blood Pressure 87 mm Hg H Blood pressure sites Arm, left Mean Arterial Pressure 98 mm Hg Pulse Pressure 33 mm Hg Oxygen Saturation 95 % Liters per Minute 2 L/min Mode of Delivery (Oxygen) Nasal cannula . Evaluation Patient is pleasant and cooperative. He has no c/o nausea, dyspnea or pain. He is independently ambulating. Callbell withn reach. Q1 hour rounding in place. Safety and comfort maintained. . * Alva Smith RN: VERIFY, PERFORM, SIGN Event Display: Progress Note Hospital Authored Date: [id number] Patient: SHAWNA STARK Age: 60 years Sex: Male : 1965 Associated Diagnoses: None Author: Alva Smith RN Findings Problem Related to Alteration in Cardiac Function (new) : Alteration in Cardiac Function/new 05/05/2025 12:00 EDT Alteration in Cardiac Status Related to Heart failure Goals & Outcomes, Cardiac Status Pt will resume/maintain adequate cardiac output Cardiac Interventions Implemented Assess/monitor cardiac status, Assess/monitor respiratory status,Monitor & document daily weight Goals/Interventions, Cardiac Yes Cardiac, Problem Start 05/02/2025 3:13 Reviewed Plan with, Cardiac Status Patient Patient Progression, Cardiac Status Patient progressing according to plan . Alteration in Endocrine : Alteration in Endocrine Function/new 05/05/2025 12:00 EDT Alteration in Endocrine Related to Diabetes Goals & Outcomes, Endocrine Blood glucose levels will stabilize during hospitalization, Pt willreceive/maintain adequate nutrition status, Pt will resume/maintain adequate cardiac output, Pt will maintain adequate GI/ function appropriate for pt, Vital signs, electrolytes & blood glucosewill stabilize, Pt will be maintained on sc insulin & appropriate diet, Pt will resume regular activities, Pt will verbalize psychosocial implications of diabetes, Pt/caregiver will start home management learning Interventions, Endocrine Assess & monitor for insulin effects; hypoglycemia, Assess dietary intake before onset of DKA, Collaborate w/provider re: insulin dosage adjustments, Provide diabetic teaching packet BH Goals/Interventions, Endocrine Yes Endocrine, Problem Start 05/02/2025 10:37 Reviewed Plan with, Endocrine Patient Patient Progression, Endocrine Pt progressing according to plan . Alteration in Respiratory Function (new) : Alteration in Respiratory Function/new 05/05/2025 12:00 EDT Alteration in Resp Status Related to COPD, Pneumonia Goals & Outcomes, Respiratory Pt will maintain/resume baseline physical assessment, Pt will demonstrate proper technique w/self care procedures Interventions, Respiratory Assess for and report S&S of respiratory distress BH Goals/Interventions, Respiratory Yes Respiratory, Problem Start 05/02/2025 3:14 Reviewed Plan with, Respiratory Patient Patient Progression, Respiratory Patient progressing according to plan . Nursing Data Cardiac Data. : Cardiac Data. 05/05/2025 8:52 EDT Cardiovascular Symptoms None Heart Rhythm Regular Pacemaker No Cardiac Rhythm Sinus tachycardia Capillary Refill < 3 seconds Dorsalis Pedis Pulse, Left Normal Dorsalis Pedis Pulse, Right Normal engine monitor Yes Cardiovascular WNL except . Respiratory/Pulmonary Data. : Respiratory/Pulmonary Data. 05/05/2025 8:52 EDT Respiratory Symptoms Dyspnea with exertion Left Lower Lobe Breath Sounds Crackles/rales Right Lower Lobe Breath Sounds Crackles/rales Respiratory distress None Respiratory Treatment(s) Incentive spirometry Respiratory WNL except . Evaluation Pt is alert and oriented ??4, ambulating independently within the room. engine monitor shows sinustachycardia. Patient is maintaining oxygen saturation at 91% on 2L via nasal cannula. Requires 6L with ambulation per respiratory therapy. Diabetic education provided, pt able to return demonstrate correct insulin self- administration technique. Call light is within reach. Patient is able to verbalize needs.. Consult note * Merary Galaviz MD: VERIFY, PERFORM, SIGN Event Display: Consultation Note Authored Date: [id number] Patient: SHAWNA STARK Age: 60 years Sex: Male : 1965 Associated Diagnoses: None Author: Merary Galaviz MD Visit Information Requested to see this patient by: [facility] Felipa CORNEJO. Reason for consult pneumonia History obtained: from (patient, chart). History of Present Illness Mr. Stark is a 60-year-old male with a history of COPD for which he is managed through the primary care's office. Patient refuses outpatient bronchodilator therapy and has been doing supplementary vitamin D and herbal remedies. At baseline, he has no exercise limitations. His boss and office mates had acute onset of fever, nonproductive cough and dyspnea. Approximately week later, he had onset of myalgia, chills, cough and dyspnea. The cough is nonproductive. He was brought in the hospital and had his an elevated WBC 18.5 with a left shift. There was no documented fever. CT???PA 05/02/2025 shows bilateral groundglass opacities on a background of emphysema. Patient reports improvement in his breathing since admission. He has DuoNebs 4 times daily. Past Medical History Allergies Allergic Reactions (Selected) Severity Not Documented Aleve- No reactions were documented. Nortriptyline- Psychotic. Other Environmental Allergy- Watery eyes, sneezing. Nonallergic Reactions (Selected) Severity Not Documented Aspirin- Ulcers. Ibuprofen- Ulcers. Social History Tobacco Exposure Cigarettes: 120 pack years. 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 Was incarcerated.. Review of Systems Constitutional: no night sweats, no weight loss. Cardiovascular: no Chest pain. Gastrointestinal: no Constipation, no Heartburn. Constitutional, Eye, Skin, Head/Neck, ENMT, Respiratory, Cardio, Gastrointestinal, Genitourinary, Endocrine, Muscoloskeletal, Immunologic, Hematologic, Lymphatic, Neurologic, Psych reviewed and negative except as noted above Physical Examination Vital Signs Vitals : VITALS 05/03/2025 17:00 EDT Pulse Rate 112 bpm H Respiratory Rate 18 br/min Oxygen Saturation 94 % Liters per Minute 2 L/min 05/03/2025 15:25 EDT Temperature 97.9 DegF Systolic Blood Pressure 117 mm Hg Diastolic Blood Pressure 86 mm Hg H . General: Appearance (No apparent distress, Well Developed). HEENT: Neck No lymphadenopathy. Cardiovascular: Cardiac (PMI Non displaced, RRR, No M/G/R). Respiratory: not Normal I:E, no wheezes, crackles. Abdomen/GI: Non-distended, Normal bowel sounds, Soft non-tender, No hepatosplenomegaly, No masses. Extremities: no edema. Neurologic: Neuro Exam CN 2-12 normal. Psychiatric: Orientation to time, Orientation to person, Orientation to place. Results Review 7 day results Labs & Documents Laboratory : LABORATORY 05/03/2025 5:49 EDT WBC 12.4 k/mm3 H 05/02/2025 5:39 EDT WBC 13.8 k/mm3 H 05/01/2025 15:44 EDT WBC 15.3 k/mm3 H Impression and Plan 1. Viral pneumonia with hypoxia 2. COPD 3. T2DM Recommendations: ??? Consider change to Brovana nebs twice daily ??? Would recommend d/c DuoNebs and start Atrovent every 6/as needed ??? Albuterol as needed every 2 hourly ??? Start prednisone 40 mg daily and rapid taper at discharge ??? Patient will need follow-up CT chest 6 weeks post discharge ??? His primary is in [place] and he may follow with pulmonary there, or see us Thank you for allowing us to care for this patient. Will sign off presently Note * Desi Calvo RN: PERFORM Event Display: Discharge/Transfer Note Hospital Authored Date: [id number] Nursing Discharge Note Entered On: 05/06/2025 17:48 EDT Performed On: 05/06/2025 17:48 EDT by Desi Calvo RN Nursing Discharge Note 2 Discharge Time : 05/06/2025 17:30 EDT Discharge Level of Care at Discharge : Home/Chcf/Foster Care Patient Left Unit Via : Wheelchair Patient Accompanied Off Unit with : Responsible adult DC Instructions Provided & Signed by Pt : Yes Patient Understands D/C Instructions : Yes Patient Instructions Discharge Signed : Yes Did Pt have Specialty Bed or Wound Vac : No Desi Calvo RN - 05/06/2025 17:48 EDT * Marion Vizcarra MD: PERFORM, MODIFY Event Display: Discharge/Transfer Note Hospital Authored Date: [id number] Patient: ??SHAWNA STARK ? Age:??60 Years?Sex:??Male?:??1965?? Patient Information Discharge Location: Med Surg Primary Care Physician: Lashay PHELPS, Warner Morrison Admit Date/Time: 05/01/2025 19:07 Discharge Disposition Discharge Disposition: Home with Home Health Discharge Diagnosis Acute systolic heart failure (I50.21) Acute respiratory failure with hypoxia (J96.01) Type 2 diabetes mellitus with hyperglycemia, without long-term current use of insulin (E11.65) Myofascial pain syndrome (M79.18) COPD without exacerbation (J44.9) _ Discharge Medications Albuterol (ProAir HFA 90 mcg/inh inhalation aerosol)??1 inhalation 90 Microgram Inhalation Every 6 hours as needed as needed for shortness of breath or wheezing Ascorbic Acid (Vitamin C 500 mg oral tablet)??1 tab(s) 500 Milligram By Mouth Daily Cefpodoxime (cefpodoxime 200 mg oral tablet)??200 Milligram By Mouth Every 12 hours for 5 Days Cholecalciferol (Vitamin D3 1000 intl units oral capsule)??1 capsule 1,000 International Unit By Mouth Daily Cyclobenzaprine (cyclobenzaprine 10 mg oral tablet)??10 Milligram 1 tablet By Mouth 3 times a day as needed for spasm dapagliflozin (Farxiga 10 mg oral tablet)??1 tab(s) 10 Milligram By Mouth Daily Durable Medical Equipment (Alcohol Pads)??See Instructions for 30 Days Use twice a day during bloodglucose check. Durable Medical Equipment (Freestyle Lancets)??See Instructions for 30 Days Use twice a day for blood glucose check. Durable Medical Equipment (Freestyle Lite Monitor)??See Instructions for 30 Days use as directed for Type 2 Diabetes Mellitus Durable Medical Equipment (Freestyle Lite Test Strips)??See Instructions for 30 Days Use twice a day for blood glucose check. Durable Medical Equipment (Pen [place], 31 G x 8 mm BD Ultra Fine III)??See Instructions for 30 Days Use twice a day for blood glucose check. Fluticasone Nasal (fluticasone 27.5 mcg/inh nasal spray)??1 spray(s) 27.5 Microgram Nares, Both Daily as needed for allergy symptoms fluticasone-vilanterol (fluticasone-vilanterol 200 mcg-25 mcg/inh inhalation powder)??1 inhalation Inhalation Daily for 30 Days at the same time every day Furosemide (Lasix 20 mg oral tablet)??20 Milligram 1 tablet By Mouth Daily Insulin Glargine (Lantus Solostar Pen 100 units/mL subcutaneous solution)??10 unit(s) Subcutaneous Injection Daily at bedtime Lisinopril (lisinopril 20 mg oral tablet)??20 Milligram 1 tablet By Mouth Daily Omeprazole (omeprazole 20 mg oral delayed release tablet)??1 tab(s) 20 Milligram By Mouth Daily PredniSONE (predniSONE 10 mg oral tablet)??See Instructions 30 mg for 3 days then 20 mg for 3 days then 10 mg for 3 days then stop. ? Quality Measures Tobacco Use Treatment:? Medications Started Prednisone taper. Lasix 20 mg daily. Insulin Lantus??10 units daily at bedtime. Breo Ellipta inhaler. Albuterol inhaler as needed.?? Cefpodoxime for??5 days. Farxiga 10 mg daily Medications Discontinued None. Allergies Allergies ?(Active and Proposed Allergies Only) nortriptyline? (Severity: Unknown severity, Onset: Unknown) ?Reactions: psychotic Aleve? (Severity: Unknown severity, Onset: Unknown) Other Environmental Allergy? (Severity: Unknown severity, Onset: Unknown) ?Reactions: watery eyes, sneezing ibuprofen? (Severity: Unknown severity, Onset: Unknown) ?Reactions: ulcers ?Comments: all NSAIDS give extreme gi upset aspirin? (Severity: Unknown severity, Onset: Unknown) ?Reactions: ulcers ?Comments: hx ulcers. vomits blood when on asa rx ? PCP Follow-Up/Heads-Up He will need follow-up??chest CT in 6 weeks??and follow-up with??pulmonary outpatient. Hospital Course ??60-year-old male with a history of COPD, fibromyalgia, reflex sympathetic dystrophy, coronary artery disease, and alcoholism in remission presenting with shortness for the past??week.? Suspect Acute systolic heart failure (I50.21) vs. Acute non-cardiogenic pulmonary edema (J81.0):??-POCUS showed bilateral scattered B-lines in all lung jolly no pleural effusion, LVEF is difficult to assess??due to severe emphysema but suspect to be low, POCUS findings, exam (bibasilar crackles and pitting edema), symptoms (occult onset dyspnea and orthopnea), and CXR all consistent with pulmonary edema (asymmetric more on R); trop negative on admission and chest pain free, EKG no ischemia; proBNP is an outlier and unexpectedly low given POCUS findings hence noncardiogenic pulmonary edema??or??certain type of diffuse pneumonitis??remain in differential - proBNP 69 on admission-->109 - Chest x-ray??with suspected vascular congestion, possible superimposed??pneumonia - CT angio chest on 05/02 limited diagnostic exam due to??respiratory motion, but no evidence of central??lobar pulmonary embolism, segmental and??subsegmental??emboli could not be ruled out. Diffuse??airspace interstitial opacities,??pneumonitis or pulmonary edema pattern??,no pleural effusions - s/p??Furosemide??20 mg??IV on 05/01 and 40 mg IV??twice daily on 05/02 - Bilateral??LE venous duplex negative for DVT - Echo on 05/03/2025 demonstrates preserved LV systolic function, Small's biplane EF 55%, indeterminate diastolic function, no obvious wall motion??abnormalities,??normal RV systolic function and nosignificant valvular disease - He is euvolemic,??on exam.?? JVP not elevated. ??Trace LE edema On discharge will continue Lasix 20 mg daily and Farxiga 10 mg daily. ? Acute respiratory failure with hypoxia (J96.01):??-2/2 above based on CXR, exam and POCUS findings,no convincing symptoms to suggest PNA, reasonable to keep ceftriaxone for now check procal??may stop if below 0.25 ng/mL?? Viral pneumonia with hypoxia COPD/emphysema - SpO2 93% on 2 L - CT angio chest??as above, diffuse??increase in interstitial markings and groundglass opacities throughout the lungs bilaterally with underlying emphysematous changes - Evaluated by??pulmonary,??DuoNebs changed to Brovana??and started on prednisone 40 mg daily (05/04). ??Will need??rapid taper at discharge, follow- up??chest CT in 6 weeks??and follow-up with??pulmonary outpatient - Will??start??Vantin 200 mg twice daily for 5 days and azithromycin 250 daily for 4 days to complete antibiotic therapy - Continue??to wean off??O2, if unable to wean, will need assessment??of O2 requirement at discharge. Patient qualifies for home oxygen. Home Oxygen Recommendations At Rest Oxygen recommendations at rest: 1LPM.?? Home Oxygen Recommendations On Ambulation Oxygen recommendations on ambulation:: 2LPM.? Type 2 diabetes mellitus with hyperglycemia, without long-term current use of insulin (E11.65):??-newly diagnosed A1c 10.3% Continue??farxia 10mg QD. Started on Lantus 10 units??daily at bedtime. Patient had a follow-up with PCP??next week. ?? Myofascial pain syndrome (M79.18):??-analgesics prn? Objective Measurements?? Height: 183 cm (05/05/25) Weight: 91.6 kg (05/06/25) Dry Weight: 95.1 kg (05/02/25) Body Mass Index:??28.4 kg/m2??High (05/02/25) ? Vital Signs?? Temperature: 97.4 DegF (05/06/25 10:00:00) Temperature Route: Oral (05/06/25 10:00:00) Pulse Rate:??109 bpm??High (05/06/25 10:00:00) Respiratory Rate: 18 br/min (05/06/25 10:00:00) Systolic Blood Pressure: 128 mm Hg (05/06/25 10:00:00) Diastolic Blood Pressure:??89 mm Hg??High (05/06/25 10:00:00) Blood pressure sites: Arm, left (05/06/25 10:00:00) Mean Arterial Pressure: 98 mm Hg (05/05/25 19:33:00) Pulse Pressure: 39 mm Hg (05/06/25 10:00:00) Oxygen Saturation:??92 %??Low (05/06/25 10:00:00) Liters per Minute: 2 L/min (05/06/25 10:00:00) Mode of Delivery (Oxygen): Nasal cannula (05/06/25 10:00:00) Early Warning Score: 6 (05/06/25 11:41:56) ? . Physical Exam ?? General: Lying comfortably in bed,no evident distress Cardiac: S1 + S2 + 0, no murmurs heard Respiratory: CTA, No wheezes, Rales or crackles heard Abdomen: soft, nondistended, nontender Extremities: No edema or cyanosis present Neurological: AO X3,cranial nerves grossly normal? Pending Results No Pending Results Patient Education Titles [employer] Patient Education - Understanding Type 2 Diabetes?? [employer] Patient Education - [id number]: Giving Yourself an Insulin Shot?? [employer] Patient Education - Insulin Glargine (rDNA origin) Injection?? Follow-Up Appointments Added Follow Up ?Time Frame ?Comments Lashay PHELPS, Warner Morrison?1 to 2 weeks Home Health Face to Face *Denotes mandatory jolly ?? *I certify that this patient is under my care and that I or an allowed non- physician working with me had a face to face encounter with the patient on this date:??05/06/2025 13:14 ?? *The encounter with the patient was in whole, or in part, for the following medical condition, which is the primary diagnosis(es) for home health care:??Acute systolic heart failure (I50.21) Acute respiratory failure with hypoxia (J96.01) Type 2 diabetes mellitus with hyperglycemia, without long-term current use of insulin (E11.65) Myofascial pain syndrome (M79.18) COPD without exacerbation (J44.9) ?? *Select the indications for the discipline/s that are being arranged for this patient. Nursing (select all that apply): [_] None [X_] Medication management (reconciliation, teaching)?? [_X] Chronic disease management?? [_] Wound care and treatment?? [_] Home safety evaluation [_] Administer SQ/IM/IV medications?? [_] Cath care?? [_] Drain care?? [_] Trach or GT care?? Other _ Occupation Therapy (select all that apply): [_] None [_] ADL Management [_] Fall prevention training [_] Energy conservation [_] Cognitive training Other _ Physical Therapy (select all that apply): [_] None [X_] Functional mobility training [X_] Home exercise program to strengthen [_] Increase ROM?? [_] Falls prevention training [_] Home maintenance program for chronic disease Other _ Speech Therapy (select all that apply): [_] None [_] Swallow evaluation and training [_] Speech and language training [_] Cognitive training to process, organize, and/or recall information Other _ ? *Homebound due to (select all that apply): [X_] Inability to leave home without assistance/supervision [X_] Inability to ambulate without assistance [_] Pain [_] Decreased strength and endurance [_] Unsteady gait [_] Severe SOB and fatigue [_] Impaired transfers [_] Inability to negotiate stairs [_] Limited weight bearing [_] Mental status change? *Physician Signature:?? Marion Vizcarra MD ?? *By signing this, I certify that I have personally evaluated the patient and agree with the findings and recommendations as documented above. ? Results Discharge Labs BACTERIOLOGY Blood Culture Results Preliminary report ()?? 05/01/2025 17:48 Blood Culture Specimen Source BLOOD ()?? 05/01/2025 17:48 Blood Culture Isolate 1 Comment ()?? 05/01/2025 17:48 Blood Cult 2 Results Preliminary report ()?? 05/01/2025 18:13 Blood Culture 2 Specimen Source BLOOD ()?? 05/01/2025 18:13 Blood Culture 2 Isolate 1 Comment ()?? 05/01/2025 18:13 ?? BLOOD COUNT & DIFF WBC 11.9 k/mm3 (High)?? 05/04/2025 06:19 RBC 5.33 m/mm3 ()?? 05/04/2025 06:19 Hgb 14.9 Gm/dL ()?? 05/04/2025 06:19 Hct 45.0 % ()?? 05/04/2025 06:19 MCV 84.4 femtoliters ()?? 05/04/2025 06:19 MCH 28.0 pg ()?? 05/04/2025 06:19 MCHC 33.1 Gm/dL ()?? 05/04/2025 06:19 Platelet Count 409 k/mm3 ()?? 05/04/2025 06:19 RDW-SD 40.1 femtoliters ()?? 05/04/2025 06:19 MPV 10.9 femtoliters ()?? 05/04/2025 06:19 Nucleated RBC (Automated) 0.0 #/100 WBC'S ()?? 05/04/2025 06:19 Abs. NRBC 0.0 k/mm3 ()?? 05/04/2025 06:19 Abs. Neut 13.0 k/mm3 (High)?? 05/01/2025 15:44 Abs. Lymph 1.1 k/mm3 ()?? 05/01/2025 15:44 Abs. [place] 1.0 k/mm3 ()?? 05/01/2025 15:44 Abs. Eo 0.1 k/mm3 ()?? 05/01/2025 15:44 Abs. Baso 0.0 k/mm3 ()?? 05/01/2025 15:44 Neut % 84.6 % (High)?? 05/01/2025 15:44 Lymph % 7.3 % (Low)?? 05/01/2025 15:44 [place] % 6.6 % ()?? 05/01/2025 15:44 Eos % 0.5 % ()?? 05/01/2025 15:44 Baso % 0.3 % ()?? 05/01/2025 15:44 Imm Gran 0.7 % ()?? 05/01/2025 15:44 Abs. Imm Gran 0.1 k/mm3 ()?? 05/01/2025 15:44 ?? CARDIAC Nt-Probnp 109 pg/mL ()?? 05/03/2025 05:49 High Sensitivity Troponin (HSTnT) 16 ng/L ()?? 05/01/2025 15:44 ?? CHEM GENERAL Sodium 134 mmol/L ()?? 05/05/2025 05:13 Potassium 4.5 mmol/L ()?? 05/05/2025 05:13 Chloride 97 mmol/L (Low)?? 05/05/2025 05:13 Bicarbonate Level 20 mmol/L (Low)?? 05/05/2025 05:13 Anion Gap 17 mmol/L ()?? 05/05/2025 05:13 Glucose Level 197 mg/dL (High)?? 05/05/2025 05:13 Glucose, POC 240 mg/dL (High)?? 05/06/2025 11:38 Hemoglobin A1C (Monitoring) 10.3 % (High)?? 05/02/2025 05:39 BUN 24 mg/dL (High)?? 05/05/2025 05:13 Creatinine-Blood 0.87 mg/dL ()?? 05/05/2025 05:13 Estimated GFR Creatinine 99 ML/MIN/1.73 M2 ()?? 05/05/2025 05:13 Calcium 9.6 mg/dL ()?? 05/05/2025 05:13 Phosphorus 4.6 mg/dL (High)?? 05/03/2025 05:49 Magnesium 2.1 mg/dL ()?? 05/04/2025 06:19 Protein, Total 7.2 Gm/dL ()?? 05/01/2025 15:44 Albumin 3.6 Gm/dL ()?? 05/01/2025 15:44 AG Ratio 1.0 ()?? 05/01/2025 15:44 Alkaline Phosphatase 90 units/L ()?? 05/01/2025 15:44 AST (SGOT) 12 units/L ()?? 05/01/2025 15:44 ALT (SGPT) 9 units/L ()?? 05/01/2025 15:44 Bilirubin, Total 0.4 mg/dL ()?? 05/01/2025 15:44 Lactate 1.7 mmol/L ()?? 05/01/2025 15:44 ?? COAG D-Dimer 2.08 mg/L FEU (High)?? 05/02/2025 17:42 ? ENDOCRINE/TUMOR MARKER TSH 0.98 uIU/mL ()?? 05/02/2025 05:39 ? FLUID STUDIES Body Fld Cult Not indicated. ()?? 05/02/2025 01:15 Note Bact Ag Cult Comment ()?? 05/02/2025 01:15 Spec Source S pneumo Urine ()?? 05/02/2025 01:15 Org ID S pneumo Not indicated. ()?? 05/02/2025 01:15 ?? HEME OTHER Hold Lavender Top SPECIMEN DISCARDED AFTER 24 HOURS. ()?? 05/05/2025 05:13 Hold Blue Top SPECIMEN DISCARDED AFTER 4 HOURS. ()?? 05/01/2025 15:44 ?? MISC. CHEMISTRY Procalcitonin 0.11 ng/mL ()?? 05/01/2025 15:44 Hold Gel Top SPECIMEN DISCARDED AFTER 1 WEEK ()?? 05/01/2025 15:44 ?? SEROLOGY INF DISEASE Legionella pneumophila Antigen NEGATIVE ()?? 05/02/2025 01:15 S. Pneumococcus Urinary Ag NEGATIVE ()?? 05/02/2025 01:15 ?? UA/URINALYSIS Appear/Color, Urine YELLOW ()?? 05/01/2025 18:50 Clarity CLEAR ()?? 05/01/2025 18:50 Specific [place], Urine 1.010 ()?? 05/01/2025 18:50 pH, Urine 6.0 ()?? 05/01/2025 18:50 Albumin, Urine NEGATIVE ()?? 05/01/2025 18:50 Glucose, Urine 3+ (Abnormal)?? 05/01/2025 18:50 Ketones, Urine TRACE (Abnormal)?? 05/01/2025 18:50 Bilirubin, Urine NEGATIVE ()?? 05/01/2025 18:50 Hemoglobin, Urine NEGATIVE ()?? 05/01/2025 18:50 Nitrite, Urine NEGATIVE ()?? 05/01/2025 18:50 Leukocyte, Urine NEGATIVE ()?? 05/01/2025 18:50 Urobilinogen NORMAL mg/dL ()?? 05/01/2025 18:50 Hold Urine Culture Testing available 48 hours from time of collection. ()?? 05/01/2025 18:50 ? URINE OTHER Est Creatinine Clearance 100.49 mL/min ()?? 05/05/2025 06:19 ? VIROLOGY Influenza A PCR NEGATIVE ()?? 05/01/2025 18:42 Influenza B PCR NEGATIVE ()?? 05/01/2025 18:42 RSV PCR NEGATIVE ()?? 05/01/2025 18:42 COVID-19 PCR Specimen Source NASAL ()?? 05/01/2025 18:42 COVID-19 PCR Result NEGATIVE ()?? 05/01/2025 18:42 ? 35_ minutes spent on discharge * Desi Calvo RN: PERFORM Event Display: Patient Education/Instruction Authored Date: [id number] Inpatient Adult Discharge Instructions. [address] [address] Name: SHAWNA STARK : 1965?? Visit: 05/01/2025 19:07?? Current Date: 05/06/2025 14:07 ?? Account: [id number]?? Inpatient Adult Discharge Instructions We would like to thank you for allowing us to assist you with your healthcare needs. The following includes patient education materials and information regarding your injury/illness. Our entire staffstrives to provide an excellent experience for our patients and their families. PLEASE ENSURE YOU FOLLOW-UP PER THE INSTRUCTIONS BELOW! ?? YOUR OPINION IS IMPORTANT TO US! Please complete the survey you may receive by mail or email. Your feedback will be used to make improvements to the healthcare experiences of our patients and their families. Surveys are administered by [employer] ?? If further treatment with your primary care physician or another doctor is recommended, it is important for you to keep the appointment. Call your primary care physician or return to the Emergency Department immediately if your condition worsens, fails to improve, or new symptoms develop. If you need to find a doctor, you can call [facility] [employer] [facility] for a referral at [phone] or toll free at [phone] or log in to [email or web address].. ?? [facility], in keeping with [facility] guidance, no longer requires face masks for staff, patientsor visitors in most situations. Similiar to time spent indoors at other locations, there is the chance that you were exposed to repiratory viruses during your time with us (such as flu or COVID-19). If you develop symptoms concerning for a viral respiratory infection, please seek testing (and treatment if indicated) from your medical provider or home test kit. ?? You can view and manage your care through the patient portal or by using a health care [facility] of your choosing. [facility] is a website that allows you to securely view your medical information including your hospital discharge summary, office visit summaries, medications and follow-up visits. You can also request appointments, renew medications, and request access to your medical information using a health care [facility] of your choosing, or just ask a question. You are entitled to know the individuals who participated in your treatment. This information is available within your medical record and will be provided upon your request. You can enroll at [email or web address] or register d uring your next office visit. You have been discharged from [facility], Patient Care Unit: Med Surg??. If you have any questions regarding these instructions, including results of studies pending, afteryou leave, please call us and we will be happy to assist you 15/04. [facility] Your Care Team Attending Physician Marion Vizcarra MD?? Consulting Providers Marion Vizcarra MD?? Discharging Providers Marion Vizcarra MD Reason for Your Visit 1 week SOB, known COPD hx, today wanted to be seen, thinks smoke in air may have aggravated his breathing?? Your Diagnosis Acute systolic heart failure Acute respiratory failure with hypoxia Type 2 diabetes mellitus with hyperglycemia, without long-term current use of insulin Myofascial pain syndrome COPD without exacerbation Tests Performed Below is a partial list of the tests performed during your hospitalization. You may have had other tests and procedures not included in this list. Please discuss all test results with your provider. B Type Natriuretic Peptide (NT-proBNP) Basic Metabolic Panel Blood Culture Blood Culture #2 Blood Culture 2 Results Blood Culture Result BUN Calcium Level CBC CBC w/ Differential Comprehensive Metabolic Panel COVID-19, RSV, and Flu A/B, Rapid PCR Creatinine D Dimer Electrolytes Glucose Level GLUCOSE POC HEMOGLOBIN A1C High??Sensitivity??Troponin T HOLD BLUE TUBE HOLD GEL TUBE HOLD LAVENDER TUBE Lactate Level Legionella Antigen Urine Magnesium Level Phosphorus Level ProBNP PROCALCITONIN Strep Pneumoniae Urinary Ag TSH Urinalysis w/hold for Urine Culture CT Angio Chest Doppler Ext Lower Venous Bilat (US) XR Chest 2 Views Frontal and Lat B Type Natriuretic Peptide (NT-proBNP)?? BUN?? Basic Metabolic Panel?? Blood Culture?? Blood Culture #2?? Blood Culture 2 Results?? Blood Culture Result?? CBC?? CBC w/ Differential?? COVID-19, RSV, and Flu A/B, Rapid PCR?? CT Angio Chest?? Calcium Level?? Comprehensive Metabolic Panel?? Creatinine?? D Dimer?? Electrolytes?? Gel Top Hold Tube (HOLD GEL TUBE)?? Glucose Level?? Glucose POC?? Hemoglobin A1C (Monitoring) (HEMOGLOBIN A1C)?? High??Sensitivity??Troponin T?? Hold Blue Top Tube (HOLD BLUE TUBE)?? Hold Lavender Top Tube (HOLD LAVENDER TUBE)?? Lactic Acid Level (Lactate Level)?? Legionella Antigen Urine?? Magnesium Level?? Phosphorus Level?? Procalcitonin Level (PROCALCITONIN)?? Strep Pneumoniae Urinary Ag?? TSH?? US Doppler Ext Lower Venous Bilat (Doppler Ext Lower Venous Bilat (US))?? Urinalysis w/hold for Urine Culture?? Chest 2 Views Frontal and Lat (XR Chest 2 Views Frontal and Lat)?? Primary Care Provider Warner Metz MD? Advance Directive Health Care Proxy on File Yes - Health Care Proxy Discharge Vitals Temperature: 97.5 DegF Height: 183 cm Pulse Rate:??106 bpm??High Weight: 91.6 kg Respiratory Rate: 18 br/min Body Mass Index:??28.4 kg/m2??High Systolic Blood Pressure: 101 mm Hg Body surface area: 2.2 Diastolic Blood Pressure: 82 mm Hg ?? Oxygen Saturation: 99 % ?? Studies Pending All studies ordered during this hospital stay have been completed unless listed below. Please discuss all pending results with your provider listed above in these instructions. ?? No incomplete studies found?? What to do next Instructions From Your Doctor ?? Orders? 05/06/25 13:29:00 EDT?? You Need to Schedule the Following Appointments Follow Up with??Warner Metz MD When:??Within 1 to 2 weeks Where: [address] [place] [address]- Discharge Medications SHAWNA STARK :1965 Visit Date:05/01/2025 Medications: Please continue your medications until treatment is completed or stopped by your provider. Medications not listed below should be discontinued. Discuss any questions related to medications with your provider. What How Much When Instructions Next Dose New Albuterol (ProAir HFA 90 mcg/ inh inhalation aerosol) 1 inhalation Inhalation Every 6 hours as needed for as needed for shortness of breath or wheezing Pickup at [facility]/pharmacy #[id number] As needed, as directed New Cefpodoxime (cefpodoxime 200 mg oral tablet) 200 Milligram Oral Every 12 hours Duration: 5 Days Pickup at [facility]/pharmacy #[id number] 05/06/25 9PM New dapagliflozin (Farxiga 10 mg oral tablet) 1 tab(s) Oral Daily Refills: 2 Pickup at [facility]/pharmacy #[id number] 05/07/25 AM New Durable Medical Equipment (Alcohol Pads) See instructions Duration: 30 Days Use twice a day during blood glucose check. ?? Pickup at [facility]/pharmacy #0969 As directed New Durable Medical Equipment (Freestyle Lancets) See instructions Duration: 30 Days Refills: 1 Use twice a day for blood glucose check. ?? Pickup at [facility]/pharmacy #0969 As directed New Durable Medical Equipment (Freestyle Lite Monitor) See instructions Duration: 30 Days use as directed for Type 2 Diabetes Mellitus ?? Pickup at [facility]/pharmacy #0969 As directed New Durable Medical Equipment (Freestyle Lite Test Strips) See instructions Duration: 30 Days Use twice a day for blood glucose check. ?? Pickup at [facility]/pharmacy #0969 As directed New Durable Medical Equipment (Pen [place], 31 G x 8 mm BD Ultra Fine III) See instructions Duration: 30 Days Refills: 1 Use twice a day for blood glucose check. ?? Pickup at [facility]/pharmacy #0969 As directed New fluticasone-vilanterol (fluticasone-vilanterol 200 mcg-25 mcg/ inh inhalation powder) 1 inhalation Inhalation Daily Duration: 30 Days Refills: 2 at the same time every day ?? Pickup at [facility]/pharmacy #0969 Once daily 05/07/25 New Furosemide (Lasix 20 mg oral tablet) 1 tab(s) Oral Daily Pickup at [facility]/pharmacy #[id number] 05/07/25 AM New Insulin Glargine (Lantus Solostar Pen 100 units/ mL subcutaneous solution) 10 unit(s) Subcutaneous Injection Daily at Bedtime Refills: 2 Pickup at [facility]/pharmacy #[id number] 05/06/25 PM New PredniSONE (predniSONE 10 mg oral tablet) See instructions 30 mg for 3 days then 20 mg for 3 days then 10 mg for 3 days then stop. ?? Pickup at [facility]/pharmacy #0901 Taper as directed Unchanged Ascorbic Acid (Vitamin C 500 mg oral tablet) 1 tab(s) Oral Daily 05/07/25 AM Unchanged Cholecalciferol (Vitamin D3 1000 intl units oral capsule) 1 capsule Oral Daily 05/07/25 AM Unchanged Cyclobenzaprine (cyclobenzaprine 10 mg oral tablet) 1 tab(s) Oral 3 times a day as needed for for spasm As needed as directed Unchanged Fluticasone Nasal (fluticasone 27.5 mcg/ inh nasal spray) 1 spray(s) Nares, Both Daily as needed for for allergy symptoms As needed as directed Unchanged Lisinopril (lisinopril 20 mg oral tablet) 1 tab(s) Oral Daily 05/07/25 AM Unchanged Omeprazole (omeprazole 20 mg oral delayed release tablet) 1 tab(s) Oral Daily 05/07/25 AM Pharmacy Information [facility]/pharmacy #[id number]: [address] [place] [phone] ?? What How Much When Comments Stop Taking Gabapentin 200 Milligram Oral 2 tablets in the am ?? Prescription Given During Visit Albuterol (ProAir HFA 90 mcg/inh inhalation aerosol) - 1 inhalation = 90 mcg, Inhalation, Every 6 hours, # 18 Gm, 0 Refills, [facility]/pharmacy #[id number], [address] [place] [phone]?? Cefpodoxime (cefpodoxime 200 mg oral tablet) - 200 mg, By Mouth, Every 12 hours, # 10 tablet, 0 Refills, [facility]/pharmacy #0969, [address] [place] [phone]?? Durable Medical Equipment (Pen [place], 31 G x 8 mm BD Ultra Fine III) - , # 100 each, 1 Refills, Use twice a day for blood glucose check., [facility]/pharmacy #0969, [address] [place] [phone]?? Durable Medical Equipment (Freestyle Lancets) - , # 100 each, 1 Refills, Use twice a day for blood glucose check., [facility]/pharmacy #0969, [address] [place] [address] [phone]?? Durable Medical Equipment (Freestyle Lite Test Strips) - , # 100 each, Use twice a day for blood glucose check., [facility] #[id number], [address] [place] [address] [phone]?? Durable Medical Equipment (Freestyle Lite Monitor) - , # 1 each, 0 Refills, use as directed for Type 2 Diabetes Mellitus, [facility], [address] [place] [address] [phone]?? Durable Medical Equipment (Alcohol Pads) - , # 200 each, 0 Refills, Use twice a day during blood glucose check., [id number], [address] [place] [address] [phone]?? Furosemide (Lasix 20 mg oral tablet) - 1 tablet = 20 mg, By Mouth, Daily, # 30 tablet, 0 Refills, [id number], [address] [place] [address] [phone]?? Insulin Glargine (Lantus Solostar Pen 100 units/mL subcutaneous solution) - 10 units, Subcutaneous Injection, Daily at bedtime, # 10 mL, 2 Refills, [id number], [address] [place] [address] [phone]?? PredniSONE (predniSONE 10 mg oral tablet) - , # 18 tablet, 0 Refills, 30 mg for 3 days then 20 mg for 3 days then 10 mg for 3 days then stop., [id number], [address] [place] [address] [phone]?? dapagliflozin (Farxiga 10 mg oral tablet) - 1 tablet = 10 mg, By Mouth, Daily, # 30 tablet, 2 Refills, [facility], [address] [place] [address] [phone]?? fluticasone-vilanterol (fluticasone-vilanterol 200 mcg-25 mcg/inh inhalation powder) - 1 inhalation, Inhalation, Daily, # 1 each, 2 Refills, at the same time every day, [id number], [address] [place] [address] [phone]?? Laboratory Results Below is a partial list of the most recent Laboratory test results done prior to this discharge. You may have had other tests and procedures not included in this list. Please discuss all test resultswith your provider. Est Creatinine Clearance - 100.49 mL/min (05/05/2025) B Type Natriuretic Peptide (NT-proBNP) (05/03/2025) ???Nt-Probnp - 109 pg/mL Basic Metabolic Panel (05/03/2025) ???Sodium - 135 mmol/L???Potassium - 3.7 mmol/L???Chloride - 98 mmol/L???Bicarbonate Level - 24 mmol/L???Anion Gap - 13 mmol/L???Glucose Level - 207 mg/dL???BUN - 10 mg/dL???Creatinine-Blood - 0.88 mg/dL???Estimated GFR Creatinine - 99 ML/MIN/1.73 M2???Calcium - 8.8 mg/dL Blood Culture (05/01/2025) ???Blood Culture Results - Preliminary report???Blood Culture Specimen Source - BLOOD Blood Culture #2 (05/01/2025) ???Blood Cult 2 Results - Preliminary report???Blood Culture 2 Specimen Source - BLOOD Blood Culture 2 Results (05/01/2025) ???Blood Culture 2 Isolate 1 - Comment Blood Culture Result (05/01/2025) ???Blood Culture Isolate 1 - Comment BUN (05/05/2025) ???BUN - 24 mg/dL Calcium Level (05/05/2025) ???Calcium - 9.6 mg/dL CBC (05/04/2025) ???WBC - 11.9 k/mm3???RBC - 5.33 m/mm3???Hgb - 14.9 Gm/dL???Hct - 45.0 %???MCV - 84.4 femtoliters???MCH - 28.0 pg???MCHC - 33.1 Gm/dL???Platelet Count - 409 k/mm3???RDW-SD - 40.1 femtoliters???MPV - 10.9 femtoliters???Nucleated RBC (Automated) - 0.0 #/100 WBC'S???Abs. NRBC - 0.0 k/mm3 CBC w/ Differential (05/01/2025) ???WBC - 15.3 k/mm3???RBC - 5.11 m/mm3???Hgb - 14.4 Gm/dL???Hct - 44.1 %???MCV - 86.3 femtoliters???MCH - 28.2 pg???MCHC - 32.7 Gm/dL???Platelet Count - 360 k/mm3???RDW-SD - 41.0 femtoliters???MPV - 10.9 femtoliters???Nucleated RBC (Automated) - 0.0 #/100 WBC'S???Abs. NRBC - 0.0 k/mm3???Abs. Neut -13.0 k/mm3???Abs. Lymph - 1.1 k/mm3???Abs. [place] - 1.0 k/mm3???Abs. Eo - 0.1 k/mm3???Abs. Baso - 0.0k/mm3???Neut % - 84.6 %???Lymph % - 7.3 %???[place] % - 6.6 %???Eos % - 0.5 %???Baso % - 0.3 %???Imm Gran - 0.7 %???Abs. Imm Gran - 0.1 k/mm3 Comprehensive Metabolic Panel (05/01/2025) ???Sodium - 134 mmol/L???Potassium - 4.7 mmol/L???Chloride - 95 mmol/L???Bicarbonate Level - 23 mmol/L???Anion Gap - 16 mmol/L???Glucose Level - 339 mg/dL???BUN - 10 mg/dL???Creatinine-Blood - 0.98 mg/dL???Estimated GFR Creatinine - 89 ML/MIN/1.73 M2???Calcium - 8.5 mg/dL???Protein, Total - 7.2 Gm/d L???Albumin - 3.6 Gm/dL???AG Ratio - 1.0???Alkaline Phosphatase - 90 units/L???AST (SGOT) - 12 units/L???ALT (SGPT) - 9 units/L???Bilirubin, Total - 0.4 mg/dL COVID-19, RSV, and Flu A/B, Rapid PCR (05/01/2025) ???Influenza A PCR - NEGATIVE???Influenza B PCR - NEGATIVE???RSV PCR - NEGATIVE???COVID-19 PCR Specimen Source - NASAL???COVID-19 PCR Result - NEGATIVE Creatinine (05/05/2025) ???Creatinine-Blood - 0.87 mg/dL???Estimated GFR Creatinine - 99 ML/MIN/1.73 M2 D Dimer (05/02/2025) ???D-Dimer - 2.08 mg/L FEU Electrolytes (05/05/2025) ???Sodium - 134 mmol/L???Potassium - 4.5 mmol/L???Chloride - 97 mmol/L???Bicarbonate Level - 20 mmol/L???Anion Gap - 17 mmol/L Glucose Level (05/05/2025) ???Glucose Level - 197 mg/dL GLUCOSE POC (05/06/2025) ???Glucose, POC - 240 mg/dL HEMOGLOBIN A1C (05/02/2025) ???Hemoglobin A1C (Monitoring) - 10.3 % High??Sensitivity??Troponin T (05/01/2025) ???High Sensitivity Troponin (HSTnT) - 16 ng/L HOLD BLUE TUBE (05/01/2025) ???Hold Blue Top - SPECIMEN DISCARDED AFTER 4 HOURS. HOLD GEL TUBE (05/01/2025) ???Hold Gel Top - SPECIMEN DISCARDED AFTER 1 WEEK HOLD LAVENDER TUBE (05/05/2025) ???Hold Lavender Top - SPECIMEN DISCARDED AFTER 24 HOURS. Lactate Level (05/01/2025) ???Lactate - 1.7 mmol/L Legionella Antigen Urine (05/02/2025) ???Legionella pneumophila Antigen - NEGATIVE Magnesium Level (05/04/2025) ???Magnesium - 2.1 mg/dL Phosphorus Level (05/03/2025) ???Phosphorus - 4.6 mg/dL ProBNP (05/01/2025) ???Nt-Probnp - 69 pg/mL PROCALCITONIN (05/01/2025) ???Procalcitonin - 0.11 ng/mL Strep Pneumoniae Urinary Ag (05/02/2025) ???S. Pneumococcus Urinary Ag - NEGATIVE???Body Fld Cult - Not indicated.???Note Bact Ag Cult - Comment???Spec Source S pneumo - Urine???Org ID S pneumo - Not indicated. TSH (05/02/2025) ???TSH - 0.98 uIU/mL Urinalysis w/hold for Urine Culture (05/01/2025) ???Appear/Color, Urine - YELLOW???Clarity - CLEAR???Specific [place], Urine - 1.010???pH, Urine - 6.0???Albumin, Urine - NEGATIVE???Glucose, Urine - 3+???Ketones, Urine - TRACE???Bilirubin, Urine - NEGATIVE???Hemoglobin, Urine - NEGATIVE???Nitrite, Urine - NEGATIVE???Leukocyte, Urine - NEGATIVE???Ur obilinogen - NORMAL???Hold Urine Culture - Testing available 48 hours from time of collection. You will be contacted within 72 hours with your results. Allergies (NKA means No Known Allergies) Aleve Other Environmental Allergy??(watery eyes, sneezing) aspirin??(ulcers) ibuprofen??(ulcers) nortriptyline??(psychotic) Problems Active Problems??(2) Multiple joint pain?? Myofascial pain syndrome?? Education Materials Below is the list of Educational Leaflet Providered with your Discharge Instructions. [employer] Patient Education - Understanding Type 2 Diabetes?? [employer] Patient Education - [id number]-[id number]: Giving Yourself an Insulin Shot?? [employer] Patient Education - Insulin Glargine (rDNA origin) Injection?? Valuables and Belongings I fully understand and agree that [facility] accepts no responsibility for all my personal property including clothing, toilet articles, radios, jewelry, dentures, hearing aids, rings, money, or any other property that is in my possession or is brought to me after admission. I understand certain valuables may be placed in a hospital safe for a short period of time. I understand that the hospital is not liable for loss or damage due to accident, fire, or other natural occurrence while said property is in the safe. I accept full responsibility for any personal property that I keep with me, and will not hold the hospital responsible in case of loss or disappearance. I acknowledge that i have been encouraged to send valuables and belongings home. ?? Review of Valuable and Belonging List: With patient Date for Pt to Sign Valuables/Belongings: 05/02/25 00:27:00 ?? Other Discharge Information ? Pulmonary Rehab Status?? Pulmonary Rehab Discharge Status?? Respiratory Rate: 18 br/min ? Common Emergency Awareness Tips IS IT A STROKE? Act FAST and Check for these signs: FACE Does the face look uneven? ARM Does one arm drift down? SPEECH Does their speech sound strange? TIME Call at any sign of stroke ?? Heart Attack Signs Chest discomfort: Most heart attacks involve discomfort in the center of the chest and lasts more than a few minutes, or goes away and comes back. It can feel like uncomfortable pressure, squeezing, fullness or pain. Discomfort in upper body: Symptoms can include pain or discomfort in one or both arms, back, neck, jaw or stomach. Shortness of breath: With or without discomfort. Other signs: Breaking out in a cold sweat, nausea, or lightheaded. Remember, MINUTES DO MATTER. If you experience any of these heart attack warning signs, call to get immediate medical attention! ?? Smoking can increase your chances of developing chronic health problems and can cause harmful effects to other family members in your house. If you smoke, you are strongly encouraged to quit. Please call [facility] - Financial Reconciliation Link at [phone] or 1-052-009-[facility] ([phone]) or log in to [email or web address] for referrals to smoking cessation programs. ?? 324 Suicide & Crisis Lifeline is available 15/04 if you or someone you know needs to find a reason to keep living. By calling 998 you'll be connected to a skilled, trained counselor at a crisis center in your area. INPATIENT DISCHARGE INSTRUCTIONS SIGNATURE PAGE SHAWNA STARK Location:[facility] Registration Date and Time:05/01/2025 19:07 EDT Primary Care Physician: Lashay PHELPS, Warner Morrison, Attending Physician: Marion Vizcarra MD, I SHAWNA STARK, have received the above patient education materials/instructions and have verbalized understanding. If ambulance or transport services are being used I further acknowledge beinggiven a choice of service. ?? If you need to contact me, please call me at this number: . Patient/Transportation Manager Name: Patient/Transportation Manager Signature: Relationship to Patient: Witness Name/Signature: Date: * Gely Singh RN: PERFORM Event Display: Patient Education Leaflets Authored Date: [id number] Understanding Type 2 Diabetes ?? 16762 Understanding Type 2 Diabetes When your body is working normally, the food you eat is digested and used as fuel. This fuel gives energy to the body???s cells. When you have diabetes, the fuel can???t enter the cells. If not treated, diabetes can cause serious long- term health problems. Your body breaks down the food you eat into glucose. How the body gets energy The digestive system breaks down food. This results in a sugar called glucose. Some glucose is stored in the liver. But most of it enters the bloodstream and travels to the cells. Glucose is used as fuel for energy. It needs the help of a hormone called insulin to enter the cells. Insulin is made in the pancreas. It's sent into the bloodstream. This is a response to glucose in the blood. Think ofinsulin as a [place]. When insulin reaches a cell, it attaches to the cell wall. This signals the cell to make an opening. Then glucose can enter the cell. ?? When you have type 2 diabetes Early in type 2 diabetes, your cells don???t respond correctly to insulin. Because of this, less glucose than normal moves into cells. This is called insulin resistance. The pancreas then makes more insulin. But over time, the pancreas can???t make enough insulin to overcome insulin resistance. Less and less glucose enters cells. It builds up to a harmful level in the bloodstream. This is known as high blood sugar (hyperglycemia). The result is type 2 diabetes. The cells become starved for energy. This can make you feel tired and rundown. ?? Why high blood sugar is a problem If high blood sugar isn't controlled, blood vessels all over the body become damaged. Ongoing high blood sugar affects organs, blood vessels, and nerves. This raises the risk of damage to the heart, kidneys, eyes, nerves, and limbs. Diabetes also makes other problems more dangerous. These include high blood pressure, high cholesterol, and triglycerides. Over time, people with uncontrolled high blood sugar have a greater risk of being disabled or dying from serious conditions. These include heart attack, heart failure,??or stroke. They may also have problems in their eyes, kidneys, and nerves,mainly in their feet and lower legs. Many of these problems may be due to narrowing of blood vessels and poor circulation. ?? How daily issues affect your health Many things in your daily life impact your health. This can include transportation, money problems,housing, access to food, and childcare. If you can???t get to medical appointments, you may not receive the care you need. When money is tight, it may be difficult to pay for medicines. And living far from a grocery store can make it hard to buy healthy food. If you have concerns in any of these or other areas, talk with your healthcare team. They may know of local resources to assist you. Or they may have a staff person who can help. ?? Last Reviewed Date: 2023 00:00:00 ?? [id number] [employer]. All rights reserved. This information is not intended as a substitute for professional medical care. Always follow your healthcare professional's instructions. ?? * Gely Singh RN: PERFORM Event Display: Patient Education Leaflets Authored Date: [id number] Hykr-ob-Ihjg: Giving Yourself an Insulin Shot ?? Zrba-vu-Oefo: Giving Yourself an Insulin Shot - Video This video shows the 8 steps to giving yourself an insulin shot. To view the video go to this web address: [email or web address] Or, scan this QR code with your smart phone ?? [employer] ?? * Gely Singh RN: PERFORM Event Display: Patient Education Leaflets Authored Date: [id number] Insulin Glargine (rDNA origin) Injection ?? [id number] Insulin Glargine (rDNA origin) Injection WHY is this medicine prescribed? Insulin glargine products are used to treat type 1 diabetes (condition in which the body does not produce insulin and therefore cannot control the amount of sugar in the blood). Insulin glargine products are also used to treat people with type 2 diabetes (condition in which the body does not use insulin normally and, therefore, cannot control the amount of sugar in the blood) who need insulin to control their diabetes. In people with type 1 diabetes, insulin glargine products must be used with another type of insulin (a short-acting insulin). In people with type 2 diabetes, insulin glargine products also may be used with another type of insulin or with oral medication(s) for diabetes. Insulin glargine is a long-acting, synthetic version of human insulin. Insulin glargine products work by replacing the insulin that is normally produced by the body and by helping move sugar from the bloodinto other body tissues where it is used for energy. It also stops the liver from producing more sugar. Over time, people who have diabetes and high blood sugar can develop serious or life-threatening complications, including heart disease, stroke, kidney problems, nerve damage, and eye problems. Usingmedication(s), making lifestyle changes (e.g., diet, exercise, quitting smoking), and regularly checking your blood sugar may help to manage your diabetes and improve your health. This therapy may also decrease your chances of having a heart attack, stroke, or other diabetes-related complications such as kidney failure, nerve damage (numb, cold legs or feet; decreased sexual ability in men and women), eye problems, including changes or loss of vision, or gum disease. Your doctor and other healthcare providers will talk to you about the best way to manage your diabetes. HOW should this medicine be used? Insulin glargine products come as a solution (liquid) to inject subcutaneously (under the skin). They are injected once a day. You should use insulin glargine products at the same time every day. Follow the directions on your prescription label carefully, and ask your doctor or pharmacist to explain any part you do not understand. Use insulin glargine products exactly as directed. Do not use moreor less of it or use it more often than prescribed by your doctor. Never use insulin glargine products when you have symptoms of hypoglycemia (low blood sugar) or if you have checked your blood sugar and found it to be low. Insulin glargine products control diabetes but do not cure it. Continue to use insulin glargine products even if you feel well. Do not stop using insulin glargine products without talking to your doctor. Do not switch to another brand or type of insulin or change the dose of any type of insulin youare using without talking to your doctor. Always check the insulin label to make sure you received the right type of insulin from the pharmacy. Insulin glargine products come in vials and in dosing pens that contain cartridges of medication. Be sure you know what type of container your insulin glargine product comes in and what other supplies, such as needles, syringes, or pens, you will need to inject your medication. If your insulin glargine product comes in vials, you will need to use syringes to inject your dose.Ask your doctor or pharmacist to show you how to inject insulin glargine using a syringe. Ask your doctor or pharmacist if you have questions about the type of syringe you should use. If your insulin glargine product comes in pens, be sure to read and understand the software team leader's instructions. Ask your doctor or pharmacist to show you how to use the pen. Follow the directions carefully, and always perform the safety test before use. Never reuse needles or syringes and never share needles, syringes, or pens. If you are using an insulin pen, always remove the needle right after you inject your dose. Discard needles and syringes laurence puncture-resistant container. Ask your doctor or pharmacist how to dispose of the puncture-resistant container. Do not dilute insulin glargine products and do not mix insulin glargine products with any other type of insulin. You can inject your insulin glargine in your upper arm, thigh, or stomach. Never inject insulin glargine into a vein or muscle. Do not inject where the skin is thick, lumpy, tender, bruised, scaly, or hard, or into areas of skin where there are scars or skin is damaged. Change (rotate) the injection site within the chosen area with each dose; try to avoid injecting the same site more often than once every 1 to 2 weeks. Always check your insulin glargine product label to make sure you are using the correct insulin andlook at your insulin glargine product before you inject it. It should be clear and colorless. Do not use your insulin glargine product if it is colored, cloudy, or contains solid particles, or if theexpiration date on the bottle has passed. Do not use insulin glargine products in an external insulin pump. Ask your pharmacist or doctor for a copy of the software team leader's information for the patient. Are there OTHER USES for this medicine? This medication may be prescribed for other uses; ask your doctor or pharmacist for more information. What SPECIAL PRECAUTIONS should I follow? Before using insulin glargine products, ??? tell your doctor and pharmacist if you are allergic to insulin (Humulin, Novolin, others), insulin glargine, any other medications, or any of the ingredients of insulin glargine products. Ask your pharmacist for a list of the ingredients. ??? tell your doctor and pharmacist what prescription and nonprescription medications, vitamins, nutritional supplements, and herbal products you are taking. Be sure to mention pioglitazone (Actos, in Actoplus Met, in Duetact, in Oseni) and rosiglitazone (Avandia). Your doctor may need to change the doses of your medications or monitor you carefully for side effects. ??? tell your doctor if you have or have ever had nerve damage caused by your diabetes; heart failure; low blood levels of potassium; vision problems; or any other medical conditions, including heart, liver or kidney disease. ??? tell your doctor if you are , plan to become , or are . If you become while using an insulin glargine product, call your doctor. ??? if you are having surgery, including dental surgery, tell the doctor or dentist that you are using an insulin glargine product. ??? alcohol may cause a change in blood sugar. Ask your doctor about the safe use of alcoholic beverages while you are using an insulin glargine product. ???ask your doctor what to do if you get sick, experience unusual stress, or change your diet, exercise, or activity schedule. These changes can affect your blood sugar and the amount of insulin you will need. ??? ask your doctor how often you should check your blood sugar. Be aware that hypoglycemia may affect your ability to perform tasks such as driving and ask your doctor if you need to check your blood sugar before driving or operating machinery. What SPECIAL DIETARY instructions should I follow? Be sure to follow all exercise and dietary recommendations made by your doctor or dietitian. It is important to eat a healthful diet and to eat about the same amounts of the same kinds of food at about the same times each day. Skipping or delaying meals or changing the amount or kind of food you eat can cause problems with your blood sugar control. What should I do IF I FORGET to take a dose? Before you start using an insulin glargine product, ask your doctor what to do if you forget to usea dose or if you accidentally use an extra dose. Write these directions down so you can refer to them later. What SIDE EFFECTS can this medicine cause? Some side effects can be serious. If you experience these symptoms, call your doctor immediately orget emergency treatment: ??? rash, hives, or itching all over the body ??? wheezing ??? difficulty breathing or swallowing ??? fast pulse ??? sweating ??? swelling of the eyes, face, lips, tongue, or throat ??? hoarseness ??? weakness ??? muscle cramps ??? abnormal heartbeat ??? sudden weight gain ??? swelling of ankles orfeet ??? shortness of breath ??? vision changes Insulin glargine products may cause other side effects. Call your doctor if you have any unusual problems while using this medication. What should I know about STORAGE and DISPOSAL of this medication? Keep this medication in the container it came in and out of reach of children. Store unopened insulin glargine product vials and pens in the refrigerator. Never allow insulin glargine products to freeze; do not use insulin glargine that has been frozen and thawed. Unopened refrigerated insulin glargine products can be stored until the date shown on the company's label. If a refrigerator is unavailable (for example, when on vacation), store the vials or pens at room temperature and away from direct sunlight and extreme heat. Unrefrigerated vials or pens can be used within 28 days; after that time they must be discarded. Opened vials can be stored for 28 days at room temperature or in the refrigerator. Opened pens must be stored at room temperature and may be used for up to 28 days after the first use. Dispose of any insulin that has been exposed to extreme heat or cold. Keep all medication out of sight and reach of children as many containers are not child-resistant. Always lock safety caps. Place the medication in a safe location ??? one that is up and away and outof their sight and reach. https://www.[employer].org Dispose of unneeded medications in a way so that pets, children, and other people cannot take them.Do not flush this medication down the toilet. Use a medicine take-back program. Talk to your pharmacist about take-back programs in your community. Visit the FDA's Safe Disposal of Medicines website h ttps://goo.gl/c4Rm4p for more information. What should I do in case of OVERDOSE? In case of overdose, call the poison control helpline at . Information is also available online at https://www.poisonhelp.org/help. If the victim has collapsed, had a seizure, has trouble breathing, or can't be awakened, immediately call emergency services at 460. Insulin glargine overdose can occur if you use too much insulin glargine or if you use the right amount of insulin glargine but eat less than usual or exercise more than usual. Insulin glargine overdose can cause hypoglycemia. If you have symptoms of hypoglycemia, follow your doctor's instructions for what you should do if you develop hypoglycemia. Other symptoms of overdose: ??? loss of consciousness ??? seizures What OTHER INFORMATION should I know? Keep all appointments with your doctor and the laboratory. Your blood sugar and glycosylated hemoglobin (HbA1c) should be checked regularly to determine your response to insulin glargine. Your doctorwill also tell you how to check your response to this medication by measuring your blood sugar levels at home. Follow these instructions carefully. You should always wear a diabetic identification bracelet to be sure you get proper treatment in anemergency. Do not let anyone else use your medication. Ask your pharmacist any questions you have about refilling your prescription. Keep a written list of all of the prescription and nonprescription (xfww-tmh-tidyjat) medicines, vitamins, minerals, and dietary supplements you are taking. Bring this list with you each time you visit a doctor or if you are admitted to the hospital. You should carry the list with you in case of arthur rgencies. Brand Name(s): ??? Basaglar? Lantus? Rezvoglar?? (Insulin Glargine- aglr) ??? Semglee?? (Insulin Glargine-yfgn) ??? Toujeo? Soliqua?? (as a combination product containing Insulin Glargine and Lixisenatide), ?? This report on medications is for your information only, and is not considered individual patient advice. Because of the changing nature of drug information, please consult your physician or pharmacist about specific clinical use. The [employer] [employer] represents that the information provided hereunder was formulated with a reasonable standard of care, and in conformity with professional standards in the field. The [employer] makes no representations or warranties, express or implied, including, but not limited to, any implied warranty of merchantability and/or fitness for a particular purpose, with respect to such information and specifically disclaims all such warranties. Users are advised that decisions regarding drug therapy are complex medical decisions requiring the independent, informed decision of an appropriate health reproductive healthcare assistant, and the information is provided for informational purposes only. The entire monograph for a drug should be reviewed for a thorough understanding of the drug's actions, uses and side effects. The [employer] does not endorse or recommend the use of any drug.The information is not a substitute for medical care. AHFS?? Patient Medication Information???. ?? Copyright, 2023. The [employer]??, [address], [address], [place], [place]. All Rights Reserved. Duplication for commercial use must be authorized by [facility]. Selected Revisions: May 07, 2022. AHFS?? Patient Medication Information???. ?? Copyright, 2024 ?? Patient Care team information Care Team Personnel Name: Lashay PHELPS, Warner Morrison Position: Reference Physician Member Role: PCP Address: [address] [place] [address] Telecom: Name: Andressa Heath RN Position: [facility] RN Member Role: Primary Care Nurse Name: Desi Calvo RN Position: [facility] RN Member Role: Primary Care Nurse Care Team Related Persons Name: PATIENT, REFUSED Insurance Providers Guarantor name: SHAWNA STARK Cognitive Code Information #: 1 Payer: MEDICARE A INPT 25 Payer Identifier: FROY Member Number: [id number] Group Number: [id number] Subscriber Identifier: [id number] Relationship to Subscriber: self Coverage Type: MEDICARE Coverage Verification Date: NA Telecom: NA Address: [facility] Information #: 2 Payer: [employer] Payer Identifier: FROY Member Number: [id number] Group Number: [id number] Subscriber Identifier: [id number] Relationship to Subscriber: self Coverage Type: MEDICAID Coverage Verification Date: Telecom: Address:
--- NOTE | 2025-05-11 14:48 | MHC.PC.OV ---
Vital Signs 05/11/25 14:50 Height 6 ft Weight 211 lb 6 oz BMI 28.7 BP 130/70 Blood Pressure Location Lt brachial Position Sitting Pulse 93 Pulse Source Pulse Oximeter Temp 97.1 F Temp Source Temporal Artery Scan Pulse Oximetry (%) 96 Oxygen Delivery Method Nasal Cannula Intake Visit Reasons: 6 Month F/U/ZAKIYA Lainer - see comments Intake Note: Patient is here for hospital discharge follow up. Patient was discharged from [facility] on 05/06/25. Conveyor Installer Required: No Inspector Subassemblies: Not Required per policy Accompanied by: Self / Same As Patient Allergies aspirin (ASA) Allergy (Unknown, Verified 05/11/25 15:06) BLEEDING ibuprofen (From MOTRIN) Allergy (Unknown, Verified 05/11/25 15:06) BLEEDING nortriptyline (NORTRIPTYLINE) Allergy (Unknown, Verified 05/11/25 15:06) PSYCHOSIS Medication List - Last Reconciled 05/11/25 by Clint Leal PA-C albuterol sulfate 90 mcg/actuation (Ventolin HFA) 1 inh inhalation QID ascorbate calcium (vitamin C) 500 mg PO BID cholecalciferol (vitamin D3) (Vitamin D3) 10 mcg PO DAILY cyclobenzaprine 10 mg PO Q8H dapagliflozin propanediol (Farxiga) 10 mg PO DAILY diphenhydramine-acetaminophen 12.5-325 mg (Percogesic) tabs PO fluticasone furoate-vilanterol 200-25 mcg/dose 1 inh inhalation DAILY fluticasone propionate 50 mcg/actuation (Flonase Allergy Relief) 1 spray intranasal BID furosemide (Lasix) 20 mg PO DAILY insulin glargine (Basaglar Tempo Pen (U-100) Insulin) 10 units subcut QPM [lions gen PO] lisinopril 20 mg PO DAILY magnesium carb,citrate,oxide (Magnesium Complex) mg PO omeprazole 20 mg PO DAILY zinc gluconate 50 mg PO DAILY Tobacco use date assessed: 05/11/25 Dental Screening Dental Screen Date: 11/12/24 HPI 6 Month F/U/ZAKIYA Lainer - see comments HPI Details Patient is a 60-year-old male here today for has been on discharge follow-up from [facility] . This is the 1st time I am meeting this 60-year-old male with a past medical history significant for hypertension, PTSD, COPD, Patient recently hospitalized at [facility] for heat failure and pneumonia . X-ray during his ER evaluation suspected vascular congestion or possible superimposed pneumonia. Chest angiogram without notable pulmonary embolism. Bilateral lower extremity venous duplex ultrasound without DVTs. Did undergo an echocardiogram which demonstrated LV systolic function with an EF of 55%. He is ultimately noted to have this COPD exacerbation to which he was sent home with a rapid prednisone taper. Diabetes: During his has been and she knew was noted to have an A1c of 10.2 and he was started on insulin. He was discharged home on Basaglar 25 units daily. He was also started on Farxiga 10 mg daily due to his comorbid heart failure. Since being home he reports blood sugars are still somewhat high at times 200 to 260s as he is currently trying to adjust his diet . Also he currently is still on a few more days of prednisone [facility] Medical History (Updated 05/12/25 @ 07:35 by Clint Leal PA-C) Obesity Failed back syndrome Hypertension Chronic GERD COPD (chronic obstructive pulmonary disease) Surgical History History of neck surgery History of esophageal dilatation History of eye surgery History of ankle surgery History of rectal surgery H/O repair of rotator cuff Family History Father No problems noted. Mother Medical history unknown Brother Leukemia Brother Motor vehicle accident Social History Housing: Apartment Alcohol intake: never Patient Tobacco Use Status: Former Tobacco user Tobacco use type: Cigarette e-Cigarette/Vaping Use: Never Used Second Hand Smoke Exposure: Yes service: Yes Current occupational status: disabled Cognitive needs: No Hearing needs: No Vision needs: Yes (glasses ) Questionnaire PHQ-9 Over the last 2 weeks, how often have you been bothered by any of the following problems? 1. Little interest or pleasure in doing things: not at all 2. Feeling down, depressed, or hopeless: more than half the days 3. Trouble falling or staying asleep, or sleeping too much: nearly every day 4. Feeling tired or having little energy: nearly every day 5. Poor appetite or overeating: more than half the days 6. Feeling bad about yourself - or that you are a failure or have let yourself or your family down: several days 7. Trouble concentrating on things, such as reading the newspaper or watching television: not at all 8. Moving or speaking so slowly that other people could have noticed. Or the opposite - being so fidgety or restless that you have been moving around a lot more than usual: more than half the days 9. Thoughts that you would be better off or of hurting yourself in some way: not at all Total score: 13 Depression Screening Interpretation: Positive Depression Screening Follow-up: Existing condition Depression Screening Done: Yes 98710 - PHQ-9 Billing: Yes Source: Developed by Drs. Alex Schuster, Nathalie Ellis, Ari Mcnamara and colleagues, with an educational toña from [employer]. Thrive Questionnaire Date Thrive assessed: 05/04/25 I am a: Patient What is your living situation today?: I have a steady place to live Within the past 12 months, did the food you bought not last and you didn't have the money to get more?: I choose not to answer this question Within the past 12 months, did you worry whether your food would run out before you got money to buy more?: Sometimes True Do you have trouble paying for medicines?: No Do you have trouble getting transportation to medical appointments?: No Do you have trouble paying your heating and electricity bill?: No Do you have trouble taking care of your child, family member or friend?: No Do you have trouble with day-to-day activities such as bathing, preparing meals, shopping, managing finances, etc.?: Yes Are you currently unemployed and looking for a job?: I choose not to answer this question Are you interested in more education?: I choose not to answer this question Please select the resources that you would like help with: Daily support Currently or been in a relationship where the following occur: I choose not to answer THRIVE Score: 1 AUDIT C Alcohol Use Questionnaire (AUDIT-C) 1. How often do you have a drink containing alcohol?: Never Total Score: 0 JOSE-7 AMB Questionnaire JOSE-7 Date JOSE - 7 assessed: 05/11/25 Feeling nervous, anxious, or on edge: 2 = More than half the days Not being able to stop or control worryin = More than half the days Worrying too much about different things: 2 = More than half the days Trouble relaxin = More than half the days Being so restless that it is hard to sit still: 2 = More than half the days Becoming easily annoyed or irritable: 1 = Several days Feeling afraid as if something awful might happen: 1 = Several days Total JOSE-7 score (0-4 normal; 5-9 mild; 10-14 moderate; 15-21 severe): 12 Source: Developed by Drs. Alex Schuster, Nathalie Ellis, Ari Mcnamara and colleagues, with an educational toña from [employer]. JOSE-7 Assessment Billing JOSE-7 Assessment Tool: JOSE-7 Assessment 08926 Review of Systems Const Denies headache(s) Eyes Denies loss of vision ENT Denies vertigo, Denies dizziness, Denies headache(s) and Denies sore throat Card Denies chest pain, Denies leg edema and Denies lightheadedness Resp Denies cough, Denies hemoptysis and Denies wheezing GI Denies abdominal pain, Denies melena, Denies constipation, Denies diarrhea and Denies vomiting Denies dysuria, Denies urinary frequency and Denies urinary urgency Musc Denies arthralgias, Denies joint swelling, Denies numbness and Denies tingling Neuro Denies Abnormal speech present, Denies behavioral changes, Denies vertigo, Denies dizziness, Denies headache(s), Denies loss of vision, Denies memory loss, Denies numbness and Denies tingling Psych Denies anxiety, Denies behavioral changes, Denies depression, Denies memory loss and Denies panic attacks Naif/Lymph Denies easy bleeding and Denies easy bruising Aller/Immun Denies wheezing Physical exam (Primary Care) Vital Signs: Last Vital Signs Temp 97.1 F 05/11/25 14:50 Pulse 93 05/11/25 14:50 BP 130/70 05/11/25 14:50 Pulse Ox 96 05/11/25 14:50 Oxygen Delivery Method Nasal Cannula 05/11/25 14:50 BMI result Body Mass Index 28.7 Tobacco/Smoking Status: Tobacco use Status Tobacco use date assessed 05/11/25 05/11/25 14:54 Patient Tobacco Use Status Former Tobacco user 05/11/25 14:54 Tobacco use type Cigarette 05/11/25 14:54 e-Cigarette/Vaping Use Never Used 05/11/25 14:54 PHQ-9: PHQ-9 Score PHQ-9: Total score 13 05/11/25 15:16 Depression Screening Interpretation: Positive Depression Screening Follow-up: Existing condition Thrive Assessment: Date of Thrive Assessment Date Thrive assessed 05/04/25 05/11/25 14:54 Currently or been in a relationship where the following occur: I choose not to answer Const General: healthy appearing, no acute distress, alert and awake Nutritional Appearance: well nourished Orientation/consciousness: oriented to person, oriented to place and oriented to time HENMT Ears: TM's normal bilaterally General nose exam: Normal nasal mucous membranes and turbinates present Eyes Conjunctivae: conjunctivae normal Sclerae: sclerae normal Pupils: Equal, round and reactive pupils present Neck Neck: Yes no lymphadenopathy and Yes no JVD Thyroid: Thyroid normal Carotids: no bruits Resp Effort & Inspection: normal respiratory effort and not tachypneic Auscultation: no crackles, no rales, no rhonchi and no wheezes Cardio Rate: regular rate Rhythm: regular rhythm Heart sounds: no murmurs and normal S1 and S2 GI Palpation (GI): Soft to palpation, nontender, no hepatomegaly and no splenomegaly Auscultation: normal bowel sounds Skin General skin exam: no rashes or lesions noted and dry skin Neuro General: oriented to person, oriented to place and oriented to time Cranial nerves: Yes Equal, round and reactive pupils present Speech: No Abnormal speech present Gait exam (Neuro): Normal gait present Motor exam (neuro): no tremor noted Extrem Right upper extremity: full ROM Left upper extremity: full ROM Right lower extremity: full ROM; no edema Left lower extremity: full ROM; no edema Psych Mental Status: mental status grossly normal Speech and movement: Normal speech and movement present Affect: normal affect Attitude: cooperative Thought process: Normal thought process present Coding Level of Care Code Est Pt Level 4 (56552) Diagnoses Acute on chronic systolic congestive heart failure, NYHA class 3 I50.23 Congestive heart failure chronicity: acute on chronic Congestive heart failure type: systolic Centrilobular emphysema J43.2 COPD type: emphysema Emphysema type: centrilobular Type 2 diabetes mellitus with hyperglycemia, without long-term current use of insulin E11.65 Diabetes mellitus continuous churn buttermaker insulin use: without skilled nursing use Diabetes mellitus complication status: with hyperglycemia Primary hypertension I10 Hypertension type: primary hypertension PTSD (post-traumatic stress disorder) F43.10 MDD (major depressive disorder), recurrent episode, moderate F33.1 Additional Codes JOSE-7 Assessment Billing - JOSE-7 Assessment Tool: JOSE-7 Assessment 48405 ([id number]) PHQ-9 - 51822 - PHQ-9 Billing: Yes ([id number]) Assessment & Plan Assessment & Plan (1) CHF (congestive heart failure), NYHA class III: Code(s): I50.9 - Heart failure, unspecified Category: Medical Qualifiers: Congestive heart failure chronicity: acute on chronic Congestive heart failure type: systolic Qualified Code(s): I50.23 - Acute on chronic systolic (congestive) heart failure Plan: The patient experienced congestive heart failure during a recent hospitalization, which was managed with medications including Farxiga. He was advised to monitor weight and fluid intake to manage symptoms. A referral to a ve teacher was recommended for ongoing management. Goal LDL to be below 100 (2) COPD (chronic obstructive pulmonary disease): Comment: cont same meds; 15 min on telephone Code(s): J44.9 - Chronic obstructive pulmonary disease, unspecified Category: Medical Qualifiers: COPD type: emphysema Emphysema type: centrilobular Qualified Code(s): J43.2 - Centrilobular emphysema Plan: The patient has a history of COPD diagnosed in 2018, initially attributed to smoking, which he has since quit. He is currently on maintenance inhalers and oxygen therapy to manage symptoms. He reports his breathing has been much better since starting supplemental oxygen therapy daily.. Cardiopulmonary rehabilitation was discussed as a potential intervention to improve respiratory function. (3) DMII (diabetes mellitus, type 2): Code(s): E11.9 - Type 2 diabetes mellitus without complications Category: Medical Qualifiers: Diabetes mellitus skilled nursing insulin use: without continuous churn buttermaker use Diabetes mellitus complication status: with hyperglycemia Qualified Code(s): E11.65 - Type 2 diabetes mellitus with hyperglycemia Plan: The patient was diagnosed with diabetes mellitus during a recent hospitalization, with an A1c of 10.2. He was started on insulin therapy and advised to monitor blood glucose levels regularly. Dietary modifications were recommended to manage blood sugar levels, including reducing juice intake and increasing water consumption. Goal A1c is to be below 7.0 (4) Hypertension: Code(s): I10 - Essential (primary) hypertension Category: Medical Qualifiers: Hypertension type: primary hypertension Qualified Code(s): I10 - Essential (primary) hypertension Plan: Patient's blood pressure acceptable today in office. Will continue current dose of lisinopril with goal blood pressure to remain below 140/90 (5) PTSD (post-traumatic stress disorder): Code(s): F43.10 - Post-traumatic stress disorder, unspecified Category: Medical Plan: Patient's JOSE-7 score positive for anxiety which has been existing condition. (6) MDD (major depressive disorder), recurrent episode, moderate: Code(s): F33.1 - Major depressive disorder, recurrent, moderate Category: Medical Plan: Patient PHQ-9 score positive for depression which has been existing condition for him. He is not interested in starting mental health medication. He feels he has a fairly good support group Orders: Orders Complete Blood Count no Diff 05/11/25 J44.9 - Chronic obstructive pulmonary disease, unspecified Comprehensive [place]. Panel Fast 05/11/25 I10 - Essential (primary) hypertension Microalbumin, Random (w Creat) 05/11/25 I10 - Essential (primary) hypertension Lipid Panel 05/11/25 I10 - Essential (primary) hypertension Prostate Specific Antigen Scr 05/11/25 I50.23 - Acute on chronic systolic (congestive) heart failure, Z12.5 - Encounter for screening for malignant neoplasm of prostate Referrals Cardiology Referral I50.23 - Acute on chronic systolic (congestive) heart failure Pulmonology Referral J44.9 - Chronic obstructive pulmonary disease, unspecified Medications: New pen needle, diabetic As directed 50 ea 3RF E11.9 - Type 2 diabetes mellitus without complications blood-glucose meter (FreeStyle Lite Meter kit) test blood sugar twice a day 1 ea 0RF blood sugar diagnostic (FreeStyle Lite Strips) test blood sugar twice a day 100 ea 0RF lancets (FreeStyle Lancets) test blood sugar twice a day 100 ea 0RF insulin glargine (Basaglar Tempo Pen (U-100) Insulin) 25 units subcut QPM I10 - Essential (primary) hypertension alcohol swabs (Alcohol Prep Pads) 1 pad topical BID 100 ea 0RF
[2025-05-11 14:50] VITALS: BP 130/70; PULSE 93; TEMP 36.2; O2SAT 96; BMI 28.7
--- OUTSIDE RECORDS SUMMARY | 2025-05-11 15:51 | XMS_ITS | Clinical Summary ---
Author Organization [facility] ity Address [address] [place] [address] Care Team Providers Care Mold Technician Name Role Phone Unavailable Primary Care Provider [...] Vaccines (1 of 2) 02/15/2016 COVID-19 Vaccine ( - 2023-2 5 season) 2024 Depression Screening 09/23/2024 Influenza Vaccine (#1) 2025 RSV Immunization Adult Patie nts (1 - 1-dose 75+ series) 2041 HIB Vaccines Aged Out No longer eligi [...] age to complete this topic Meningococcal B Vaccine Aged Out No l onger eligible based on patient's age to complete this topic RSV Immunization Patients Un nickie 20 months Aged Out No longer eligible b ased on patient's age to complete this topic Varicella Vaccines Aged Out No longer eligible based on patient's age to complete this topic
== END 2025-05-11 16:11 | disposition home or self-care (01) ==
LOC: HO.HMCH 14:29
PROVIDERS: PCP Internal Medicine; Visit Provider Physician Assistant
DX: I50.23 Acute on chronic systolic (congestive) heart failure (principal); J43.2 Centrilobular emphysema; E11.65 Type 2 diabetes mellitus with hyperglycemia; F33.1 Major depressive disorder, recurrent, moderate; I10 Essential (primary) hypertension; F43.10 Post-traumatic stress disorder, unspecified

== ENCOUNTER → 2025-05-11 14:29 | Outpatient (BNVA) | payer MEDICARE, MEDICAID, SELFPAY | PROVIDERS: PCP Internal Medicine; Visit Provider Physician Assistant | DX: I11.0 Hypertensive heart disease with heart failure (principal); I50.32 Chronic diastolic (congestive) heart failure; J43.2 Centrilobular emphysema; E11.65 Type 2 diabetes mellitus with hyperglycemia; F43.10 Post-traumatic stress disorder, unspecified; F33.1 Major depressive disorder, recurrent, moderate | CPT/HCPCS: 96127; 99212 ==

== ENCOUNTER → 2025-05-17 23:59 | Outpatient (BNV) | payer MEDICARE, MEDICAID, SELFPAY | PROVIDERS: PCP Physician Assistant; Visit Provider Physician Assistant | DX: J12.9 Viral pneumonia, unspecified (principal); J44.0 Chronic obstructive pulmonary disease with (acute) lower respiratory infection; J44.1 Chronic obstructive pulmonary disease with (acute) exacerbation | CPT/HCPCS: G0180 ==

== ENCOUNTER 2025-06-21 13:12 | Outpatient (AMB) | payer MEDICARE, MEDICAID, SELFPAY ==
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
[2025-06-21 13:19] VITALS: BP 98/62; PULSE 106; O2SAT 94; BMI 28.1
== END 2025-06-21 14:00 | disposition home or self-care (01) ==
LOC: HO.HPS 13:13
PROVIDERS: PCP Physician Assistant; Referring Provider Physician Assistant; Visit Provider Internal Medicine
DX: J18.9 Pneumonia, unspecified organism (principal); J43.2 Centrilobular emphysema; J84.9 Interstitial pulmonary disease, unspecified
CPT/HCPCS: 99214

== ENCOUNTER 2025-06-21 13:12 | Outpatient (REF) | payer MEDICARE, MEDICAID, SELFPAY ==
--- NOTE | ~2025-06-21 | XR_ITS ---
EXAMINATION: XR CHEST CLINICAL INFORMATION: J43.2 - Centrilobular emphysema COMPARISON: None available. TECHNIQUE: 2 views of the chest were obtained. FINDINGS: The cardiac, hilar, and mediastinal contours are normal. Lungs demonstrate diffuse interstitial opacities throughout both lungs most confluent in the lower lungs bilaterally. There is no pneumothorax or pleural effusion. There is no focal osseous or soft tissue abnormality. XR/XR chest 2V IMPRESSION: Diffuse prominence of the interstitial markings throughout both lungs highly suggestive of underlying interstitial lung disease. No focal consolidation. Electronically signed by: Axel Marcial MD 06/21/2025 02:29 PM EDT
--- OUTSIDE RECORDS SUMMARY | 2025-06-21 15:52 | XMS_ITS | Clinical Summary ---
Author Organization [facility] ity Address [address] [place] [address] Care Team Providers Care Highway Traffic Control Technician Name Role Phone Unavailable Primary Care [...] 02/15/2016 Zoster Vaccines (1 of 2) 02/15/2016 Depression Screening 09/23/2024 COVID-19 Vaccine (1 - 2023-2 5 season) 2025 Influenza Vaccine (#1) 2025 RSV Immunization Adult [...]
== END 2025-06-21 13:13 | disposition home or self-care (01) ==
LOC: HO.XRAY 13:12
PROVIDERS: PCP Physician Assistant; Referring Provider Physician Assistant; Visit Provider Internal Medicine
DX: J43.2 Centrilobular emphysema (principal); J18.9 Pneumonia, unspecified organism; I11.0 Hypertensive heart disease with heart failure; I50.23 Acute on chronic systolic (congestive) heart failure; Z79.899 Other long term (current) drug therapy; Z87.891 Personal history of nicotine dependence
CPT/HCPCS: 71046; 99212

== ENCOUNTER → 2025-06-21 14:10 | Outpatient (BNV) | payer MEDICARE, MEDICAID, SELFPAY | PROVIDERS: PCP Physician Assistant; Referring Provider Physician Assistant; Visit Provider Radiology Diagnostic Radiology | DX: J43.2 Centrilobular emphysema (principal) | CPT/HCPCS: 71046 ==

== ENCOUNTER 2025-08-31 13:34 | Outpatient (REF) | payer MEDICARE, MEDICAID, SELFPAY ==
--- NOTE | 2025-08-31 13:39 | PFT_ITS ---
Spirometry [] Lung Volumes [] Diffusion Capacity [] Methacholine Challenge [] Flow Volume Loops [] MVV [] MIP/MEP(Max inspiratory pressure/Max expiratory pressure) [] 6 Minute Walk Test [] ABG [] Interpretation [] MTDD
[2025-08-31 14:22] VITALS: PULSE 104
--- OUTSIDE RECORDS SUMMARY | 2025-08-31 19:09 | XMS_ITS | Clinical Summary ---
Author Organization [facility] ity Address [address] [place] [address] Care Team Providers Care Gold Burnisher Name Role Phone Unavailable Primary Care Provider [...] Depression Screening 09/23/2024 COVID-19 Vaccine (1 - 2024-2 6 season) 2025 Influenza Vaccine (#1) 2025 RSV [...]
== END 2025-08-31 13:35 | disposition home or self-care (01) ==
LOC: HO.RESP 13:34
PROVIDERS: PCP Physician Assistant; Visit Provider Internal Medicine
DX: J84.9 Interstitial pulmonary disease, unspecified (principal); J43.2 Centrilobular emphysema; J96.91 Respiratory failure, unspecified with hypoxia; J98.4 Other disorders of lung; Z87.891 Personal history of nicotine dependence
CPT/HCPCS: 94060; 94640; 94727; 94729; 99212

== ENCOUNTER 2025-08-31 14:13 | Outpatient (AMB) | payer MEDICARE, MEDICAID, SELFPAY ==
[2025-08-31 14:20] VITALS: BP 108/62; PULSE 105; O2SAT 93; BMI 28.1
--- NOTE | 2025-08-31 14:20 | MHC.OFFVIS ---
Vital Signs 08/31/25 14:20 Height 6 ft Weight 207 lb BMI 28.1 BP 108/62 Blood Pressure Location Lt brachial Position Sitting Pulse 105 H Pulse Source Pulse Oximeter Pulse Oximetry (%) 93 Oxygen Delivery Method Nasal Cannula Oxygen Flow Rate 1.5 Intake Visit Reasons: COPD/Same Day PFT Natural Resources Faculty Member Required: No Allergies aspirin (ASA) Allergy (Unknown, Verified 08/31/25 14:49) BLEEDING ibuprofen (From MOTRIN) Allergy (Unknown, Verified 08/31/25 14:49) BLEEDING nortriptyline (NORTRIPTYLINE) Allergy (Unknown, Verified 08/31/25 14:49) PSYCHOSIS Medication List - Last Reconciled 08/31/25 by Jane Maurer MD albuterol sulfate 90 mcg/actuation (Ventolin HFA) 1 inh inhalation QID alcohol swabs (Alcohol Prep Pads) 1 pad topical BID ascorbate calcium (vitamin C) 500 mg PO BID cholecalciferol (vitamin D3) (Vitamin D3) 10 mcg PO DAILY cyclobenzaprine 10 mg PO Q8H dapagliflozin propanediol (Farxiga) 10 mg PO DAILY diphenhydramine-acetaminophen 12.5-325 mg (Percogesic) tabs PO fluticasone furoate-vilanterol 200-25 mcg/dose 1 inh inhalation DAILY fluticasone propionate 50 mcg/actuation (Flonase Allergy Relief) 1 spray intranasal BID FreeStyle Lancets (lancets) test blood sugar twice a day NS FreeStyle Lite Meter (blood-glucose meter) test blood sugar twice a day NS FreeStyle Lite Strips (blood sugar diagnostic) test blood sugar twice a day NS furosemide (Lasix) 20 mg PO DAILY 90 days insulin glargine (Basaglar Tempo Pen (U-100) Insulin) 25 units subcut QPM [lions gen PO] lisinopril 20 mg PO DAILY magnesium carb,citrate,oxide (Magnesium Complex) mg PO omeprazole 20 mg PO DAILY pen needle, diabetic As directed once per day zinc gluconate 50 mg PO DAILY Do you need a note to return to daycare/school/sports/work: No HPI HPI COPD/Same Day PFT: Details: THIS 60 YEARS OLD GENTLEMAN IS HERE FOR FOLLOW-UP AFTER HAVING PULMONARY FUNCTION TEST. PFT WAS DONE THIS MORNING. BREATHING CHAWLA HE HAS BEEN FAIRLY STABLE EXCEPT FOR MILD INTERMITTENT COUGH AND FEELING OF SOME CONGESTION. HE CONTINUES TO USE O2 2 L/MINUTE AT NIGHT AND ALSO 1.52 L/MINUTE DURING THE DAYTIME, WITH ANY PHYSICAL ACTIVITY. HE DOES USE BREO 200-251 INHALATION DAILY, AND ALBUTEROL HFA ONLY ONCE IN A WHILE. SINCE HIS LAST VISIT OVER HERE HE WAS READMITTED TO [facility] AND TREATED FOR ACUTE C DIFFICILE COLITIS. 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 WHILE HE WAS AT [facility] HE DID HAVE CTA OF THE CHEST, WHICH I HAVE REVIEWED AND WILL BE DESCRIBED BELOW. HE HAS VERY MINIMAL COUGH OR WHEEZING MAIN RESPIRATORY PROBLEM BEING DYSPNEA ON EXERTION. [facility] Medical History (Updated 08/31/25 @ 15:02 by Jane Maurer MD) Restrictive lung disease Respiratory failure with hypoxia Interstitial lung disease Pneumonia Obesity Failed back syndrome Hypertension Chronic GERD COPD (chronic obstructive pulmonary disease) Surgical History History of neck surgery History of esophageal dilatation History of eye surgery History of ankle surgery History of rectal surgery H/O repair of rotator cuff Family History Father No problems noted. Mother Medical history unknown Brother Leukemia Brother Motor vehicle accident Social History Housing: Apartment Alcohol intake: never Patient Tobacco Use Status: Former Tobacco user Tobacco use type: Cigarette e-Cigarette/Vaping Use: Never Used Second Hand Smoke Exposure: Yes service: Yes Current occupational status: disabled Cognitive needs: No Hearing needs: No Vision needs: Yes (glasses ) Review of Systems Const All systems reviewed & are unremarkable except as noted in HPI and below Eyes Reports no additional complaints ENT Reports no additional complaints Card Denies chest pain, Denies irregular heart rhythm and Reports leg edema Resp Reports as per HPI GI Reports heartburn (GERD SYMPTOMS CONTROLLED) Reports no additional complaints Musc Reports other (HISTORY OF FIBROMYALGIA) Skin/Breast Reports system reviewed and no additional complaints, except as documented Neuro Reports no additional complaints Psych Reports no additional complaints Endo Reports other (BEING TREATED FOR DIABETES MELLITUS) Naif/Lymph Reports no additional complaints Aller/Immun Reports no additional complaints Physical Exam Vital Signs: Last Vital Signs Pulse 105 H 08/31/25 14:20 BP 108/62 08/31/25 14:20 Pulse Ox 93 08/31/25 14:20 Oxygen Delivery Method Nasal Cannula 08/31/25 14:20 Oxygen Flow Rate 1.5 08/31/25 14:20 BMI result Body Mass Index 28.1 Const General: comfortable, no acute distress, alert and awake Orientation/consciousness: patient oriented x3 HEENT Head: Yes normal to inspection General nose exam: No nasal polyps present and No nasal discharge present Face and sinus: Yes sinuses nontender Mouth: oropharynx normal Throat: Yes posterior oropharynx normal Eyes General: appearance normal, both eyes and all related structures Neck Neck: Yes normal visual inspection, Yes no lymphadenopathy, Yes trachea midline and Yes no JVD Thyroid: Thyroid normal Chest Chest palpation & inspection: normal inspection of the chest, normal palpation of entire chest wall and no tenderness Resp Other: CHEST IS SYMMETRICAL. PERCUSSION NOTE RESONANT ON BOTH SIDES . BREATH SOUNDS SLIGHTLY. DISTANT WITH PROLONGED EXPIRATORY PHASE COARSE CREPITATIONS ARE HEARD OVER THE RIGHT LOWER LOBE, AND LT BASE . NO WHEEZES Cardio Palpation: normal PMI Rate: regular rate Rhythm: abnormal rhythm (HEART RATE IS SOMEWHAT FAST. FREQUENT IRREGULARITIES NOTED, ) Heart sounds: no gallops and no murmurs GI Palpation (GI): Soft to palpation, Tenderness to palpation present (GI), No hepatosplenomegaly present and Palpable mass present Auscultation: normal bowel sounds Back/Spine/Pelvis Thoracic/Lumbar Spine: thoracic and lumbar spine normal to inspection and thoraco-lumbar ROM limited Skin General skin exam: no rashes or lesions noted Neuro General: patient oriented x3 and no focal motor deficits Cranial nerves: Yes CN's II-XII intact bilaterally Extrem General: Yes normal to inspection, Yes no clubbing, cyanosis or edema and Yes no calf tenderness Psych Appearance: grossly normal and well kempt Speech and movement: Normal speech and movement present Results Reviewed Results Reviewed: PULMONARY FUNCTION TEST. THERE IS EVIDENCE OF MODERATE THE SEVERE RESTRICTIVE PULMONARY DISORDER WITH FVC 65% AND TLC 59%. FLOW VOLUMES ARE NORMAL. DLCO 34% CT SCAN OF THE CHEST AT [facility] SHOWS THE FOLLOWING: SEVERE CENTRILOBULAR AND PARASEPTAL EMPHYSEMA. NO ACUTE ABNORMALITY DILATED PULMONARY ARTERY SUGGESTIVE OF PULMONARY HYPERTENSION. EXTENSIVE FIBROTIC CHANGES IN BOTH LUNGS WITH BIBASILAR PREDOMINANCE Assessment & Plan Assessment & Plan (1) COPD (chronic obstructive pulmonary disease): Comment: PATIENT DOES HAVE HISTORY OF COUGH AND SHORTNESS OF BREATH ON EXERTION. HAS PAST HISTORY OF SMOKING . CT SCAN OF THE CHEST SHOWS, PULMONARY EMPHYSEMA. THESE FINDINGS ARE CONSISTENT WITH CHRONIC OBSTRUCTIVE PULMONARY DISEASE, EVEN THOUGH THE PULMONARY FUNCTION TEST DOES NOT SHOW ANY SIGNIFICANT OBSTRUCTIVE COMPONENT. I THINK THAT MAY BE BECAUSE HE IS USING BREO ALREADY. Code(s): J44.9 - Chronic obstructive pulmonary disease, unspecified Category: Medical Qualifiers: COPD type: emphysema Emphysema type: centrilobular Qualified Code(s): J43.2 - Centrilobular emphysema Plan: I WOULD ENCOURAGE HIM TO KEEP ON USING BREO 200-251 INHALATION DAILY USE ALBUTEROL HFA 2 PUFFS Q 6 HOURS ONLY P.R.N. (2) Interstitial lung disease: Comment: PER AUSCULTATION HE DOES HAVE BIBASILAR CREPITATIONS MORE PRONOUNCED ON THE RIGHT LOWER LOBE. CHEST X-RAY IS SUGGESTIVE OF INTERSTITIAL LUNG DISEASE, ESPECIALLY IN THE BASILAR AREAS. CT SCAN OF THE CHEST DONE RECENTLY AT [facility] SHOWS INTERSTITIAL LUNG DISEASE WITH BILATERAL PULMONARY FIBROSIS MORE PREDOMINANT IN THE BASILAR AREAS Code(s): J84.9 - Interstitial pulmonary disease, unspecified Category: Medical Plan: PATIENT IS ON PREDNISONE 10 MG DAILY ALREADY WHICH IS MAINLY FOR HIS COLITIS. THIS SHOULD HELP IF THERE IS ANY INFLAMMATORY CONDITION OF THE LUNGS. MAINSTAY OF THE TREATMENT IS GOING TO BE OXYGEN SUPPLEMENTATION. ADVISED TO USE O2 1.5-2 L/MINUTE AND CHECK O2 SAT FREQUENTLY. THE GOAL IS TO KEEP O2 SAT ABOVE 90%. (3) Respiratory failure with hypoxia: Comment: PATIENT HAS HYPOXEMIC RESPIRATORY FAILURE WHICH IS PROBABLY DUE TO INTERSTITIAL LUNG DISEASE/PULMONARY FIBROSIS . Code(s): J96.91 - Respiratory failure, unspecified with hypoxia Category: Medical Plan: NOTED ABOVE, THE MAINSTAY OF THE TREATMENT IS OXYGEN SUPPLEMENTATION. (4) Restrictive lung disease: Comment: PULMONARY FUNCTION TEST IS CONSISTENT WITH MODERATELY SEVERE RESTRICTIVE PULMONARY DISORDER, WHICH IS EXPLAINED BY THE PULMONARY FIBROSIS CHANGES ON CT SCAN. Code(s): J98.4 - Other disorders of lung Category: Medical Plan: TREATMENT ABOVE UNDER INTERSTITIAL LUNG DISEASE Coding Level of Care Code Est Pt Level 3 (60930) Diagnoses Centrilobular emphysema J43.2 COPD type: emphysema Emphysema type: centrilobular Interstitial lung disease J84.9 Respiratory failure with hypoxia J96.91 Restrictive lung disease J98.4
== END 2025-08-31 14:48 | disposition home or self-care (01) ==
PROVIDERS: PCP Physician Assistant; Visit Provider Internal Medicine
DX: J43.2 Centrilobular emphysema (principal); J84.9 Interstitial pulmonary disease, unspecified; J96.91 Respiratory failure, unspecified with hypoxia; J98.4 Other disorders of lung
CPT/HCPCS: 99213

== ENCOUNTER 2025-09-02 14:34 | Outpatient (AMB) | payer MEDICARE, MEDICAID, SELFPAY ==
--- NOTE | 2025-09-02 15:06 | A.OFFPC_ITS ---
Vital Signs 09/02/25 15:08 Height 6 ft Weight 196 lb 2 oz BMI 26.6 BP 120/70 Blood Pressure Location Lt brachial Position Sitting Pulse 97 Pulse Source Pulse Oximeter Temp 97.1 F Temp Source Temporal Artery Scan Pulse Oximetry (%) 94 Oxygen Delivery Method Room Air Intake Visit Reasons: f/u COPD/ CHF/ DMII Intake Note: Patient is here to follow up on COPD, CHF, DMII. Sanitation Associate Required: No Proposal Analyst: Not Required per policy Accompanied by: Self / Same As Patient Allergies aspirin (ASA) Allergy (Unknown, Verified 09/02/25 15:24) BLEEDING ibuprofen (From MOTRIN) Allergy (Unknown, Verified 09/02/25 15:24) BLEEDING nortriptyline (NORTRIPTYLINE) Allergy (Unknown, Verified 09/02/25 15:24) PSYCHOSIS Medication List - Last Reconciled 09/02/25 by Clint Leal PA-C albuterol sulfate 90 mcg/actuation (Ventolin HFA) 1 inh inhalation QID alcohol swabs (Alcohol Prep Pads) 1 pad topical BID ascorbate calcium (vitamin C) 500 mg PO BID cholecalciferol (vitamin D3) (Vitamin D3) 10 mcg PO DAILY cyclobenzaprine 10 mg PO Q8H dapagliflozin propanediol (Farxiga) 10 mg PO DAILY diphenhydramine-acetaminophen 12.5-325 mg (Percogesic) tabs PO fluticasone furoate-vilanterol 200-25 mcg/dose 1 inh inhalation DAILY 30 days fluticasone propionate 50 mcg/actuation (Flonase Allergy Relief) 1 spray intranasal BID FreeStyle Lancets (lancets) test blood sugar twice a day NS FreeStyle Lite Meter (blood-glucose meter) test blood sugar twice a day NS FreeStyle Lite Strips (blood sugar diagnostic) test blood sugar twice a day NS furosemide (Lasix) 20 mg PO DAILY 90 days guselkumab (Tremfya Pen) mg subcut insulin glargine (Basaglar Tempo Pen (U-100) Insulin) 25 units subcut QPM [lions gen PO] lisinopril 20 mg PO DAILY magnesium carb,citrate,oxide (Magnesium Complex) mg PO pen needle, diabetic As directed once per day prednisone mg PO prednisone mg PO vancomycin 125 mg PO QID zinc gluconate 50 mg PO DAILY Tobacco use date assessed: 09/02/25 Dental Screening Dental Screen Date: 11/12/24 HPI f/u COPD/ CHF/ DMII HPI Details Patient is a 60-year-old male here today for follow-up visit. This is the 2nd time I am meeting this 60-year-old male with a past medical history significant for hypertension, PTSD, COPD, insulin-dependent type 2 diabetes, hyperlipidemia Ulcertive colitis. Hospitalization in June 2025--- >Patient hospitalized in June of 2025 for hypotension, poor oral intake and diarrhea. CT of abdomen and pelvis did show colitis. He did test positive for C diff and was treated with p.o. vancomycin and IV Flagyl during his hospitalization. He did undergo a colonoscopy during his hospitalization which did show edema, erythema diffusely throughout the rectum and sigmoid colon. He was discharged home with p.o. antibiotics and a 4 week prednisone taper. r. Diabetes: During his has been and she knew was noted to have an A1c of 10.2 and he was started on insulin. He was discharged home on Basaglar 25 units daily. He was also started on Farxiga 10 mg daily due to his comorbid heart failure. Since being home he reports blood sugars are still somewhat high at times 200 to 260s as he is currently trying to adjust his diet . He is still requiring oral prednisone from both his pulmonary disease and his inflammatory bowel disease. PLAN: Will add on preprandial insulin via a moderate sliding scale to help regulate sugar. Hyperlipidemia: We have also noted on most recent labs slightly elevated total cholesterol and LDL. Due to his elevated cardiovascular risk will add on atorvastatin 10 mg to help reduce his LDL [facility] Medical History (Updated 09/02/25 @ 15:54 by Clint Leal PA-C) Restrictive lung disease Respiratory failure with hypoxia Interstitial lung disease Pneumonia Obesity Failed back syndrome Hypertension Chronic GERD COPD (chronic obstructive pulmonary disease) Surgical History History of neck surgery History of esophageal dilatation History of eye surgery History of ankle surgery History of rectal surgery H/O repair of rotator cuff Family History Father No problems noted. Mother Medical history unknown Brother Leukemia Brother Motor vehicle accident Social History Housing: Apartment Alcohol intake: never Patient Tobacco Use Status: Former Tobacco user Tobacco use type: Cigarette e-Cigarette/Vaping Use: Never Used Second Hand Smoke Exposure: Yes service: Yes Current occupational status: disabled Cognitive needs: No Hearing needs: No Vision needs: Yes (glasses ) Questionnaire Thrive Questionnaire Date Thrive assessed: 05/04/25 I am a: Patient What is your living situation today?: I have a steady place to live Within the past 12 months, did the food you bought not last and you didn't have the money to get more?: I choose not to answer this question Within the past 12 months, did you worry whether your food would run out before you got money to buy more?: Sometimes True Do you have trouble paying for medicines?: No Do you have trouble getting transportation to medical appointments?: No Do you have trouble paying your heating and electricity bill?: No Do you have trouble taking care of your child, family member or friend?: No Do you have trouble with day-to-day activities such as bathing, preparing meals, shopping, managing finances, etc.?: Yes Are you currently unemployed and looking for a job?: I choose not to answer this question Are you interested in more education?: I choose not to answer this question Please select the resources that you would like help with: Daily support Currently or been in a relationship where the following occur: I choose not to answer THRIVE Score: 1 JOSE-7 AMB Questionnaire JOSE-7 Date JOSE - 7 assessed: 05/11/25 Source: Developed by Drs. Alex Schuster, Nathalie Ellis, Ari Mcnamara and colleagues, with an educational toña from [employer]. Review of Systems Const Denies headache(s) Eyes Denies loss of vision ENT Denies vertigo, Denies dizziness, Denies headache(s) and Denies sore throat Card Denies chest pain, Denies leg edema and Denies lightheadedness Resp Denies cough, Denies hemoptysis and Denies wheezing GI Denies abdominal pain, Denies melena, Denies constipation, Denies diarrhea and Denies vomiting Denies dysuria, Denies urinary frequency and Denies urinary urgency Musc Denies arthralgias, Denies joint swelling, Denies numbness and Denies tingling Neuro Denies Abnormal speech present, Denies behavioral changes, Denies vertigo, Denies dizziness, Denies headache(s), Denies loss of vision, Denies memory loss, Denies numbness and Denies tingling Psych Denies anxiety, Denies behavioral changes, Denies depression, Denies memory loss and Denies panic attacks Naif/Lymph Denies easy bleeding and Denies easy bruising Aller/Immun Denies wheezing Physical exam (Primary Care) Vital Signs: Last Vital Signs Temp 97.1 F 09/02/25 15:08 Pulse 97 09/02/25 15:08 BP 120/70 09/02/25 15:08 Pulse Ox 94 09/02/25 15:08 Oxygen Delivery Method Room Air 09/02/25 15:08 BMI result Body Mass Index 26.6 Tobacco/Smoking Status: Tobacco use Status Tobacco use date assessed 09/02/25 09/02/25 15:17 Patient Tobacco Use Status Former Tobacco user 09/02/25 15:17 Tobacco use type Cigarette 09/02/25 15:17 e-Cigarette/Vaping Use Never Used 09/02/25 15:17 Thrive Assessment: Date of Thrive Assessment Date Thrive assessed 05/04/25 09/02/25 15:17 Currently or been in a relationship where the following occur: I choose not to answer Const General: healthy appearing, no acute distress, alert and awake Nutritional Appearance: well nourished Orientation/consciousness: oriented to person, oriented to place and oriented to time HENMT Ears: TM's normal bilaterally General nose exam: Normal nasal mucous membranes and turbinates present Eyes Conjunctivae: conjunctivae normal Sclerae: sclerae normal Pupils: Equal, round and reactive pupils present Neck Neck: Yes no lymphadenopathy and Yes no JVD Thyroid: Thyroid normal Carotids: no bruits Resp Effort & Inspection: normal respiratory effort and not tachypneic Auscultation: no crackles, no rales, no rhonchi and no wheezes Cardio Rate: regular rate Rhythm: regular rhythm Heart sounds: no murmurs and normal S1 and S2 GI Palpation (GI): Soft to palpation, nontender, no hepatomegaly and no splenomegaly Auscultation: normal bowel sounds Skin General skin exam: no rashes or lesions noted and dry skin Neuro General: oriented to person, oriented to place and oriented to time Cranial nerves: Yes Equal, round and reactive pupils present Speech: No Abnormal speech present Gait exam (Neuro): Normal gait present Motor exam (neuro): no tremor noted Extrem Right upper extremity: full ROM Left upper extremity: full ROM Right lower extremity: full ROM; no edema Left lower extremity: full ROM; no edema Psych Mental Status: mental status grossly normal Speech and movement: Normal speech and movement present Affect: normal affect Attitude: cooperative Thought process: Normal thought process present Coding Level of Care Code Est Pt Level 4 (97135) Diagnoses 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 Digestive disease complication type: with rectal bleeding Ulcerative colitis location: ulcerative rectosigmoiditis Acute on chronic systolic congestive heart failure, NYHA class 3 I50.23 Congestive heart failure chronicity: acute on chronic Congestive heart failure type: systolic Centrilobular emphysema J43.2 COPD type: emphysema Emphysema type: centrilobular Type 2 diabetes mellitus with hyperglycemia, without long-term current use of insulin E11.65 Diabetes mellitus complication status: with hyperglycemia Diabetes mellitus detention insulin use: without parts counterman use Primary hypertension I10 Hypertension type: primary hypertension Mixed hyperlipidemia E78.2 Hyperlipidemia type: mixed hyperlipidemia Assessment & Plan Assessment & Plan (1) Ulcerative colitis: Code(s): K51.90 - Ulcerative colitis, unspecified, without complications Category: Medical Qualifiers: Digestive disease complication type: with rectal bleeding Ulcerative colitis location: ulcerative rectosigmoiditis Qualified Code(s): K51.311 - Ulcerative (chronic) rectosigmoiditis with rectal bleeding Plan: Seeing GI At [facility]- Dr Reich , he has been started on disease modifying drug and will take some time for noticeable effect. Until then he continues on oral prednisone to help reduce his bowel inflammation. He still does have frequent bowels movements though no further blood (2) CHF (congestive heart failure), NYHA class III: Code(s): I50.9 - Heart failure, unspecified Category: Medical Qualifiers: Congestive heart failure chronicity: acute on chronic Congestive heart failure type: systolic Qualified Code(s): I50.23 - Acute on chronic systolic (congestive) heart failure Plan: Has upcoming appointment with Cardiology. At this time he appears to be fairly euvolemic. Continues on lisinopril though will hold off on any diuresis at this time as he recently was hypotensive secondary to chronic diarrhea from his inflammatory bowel disease. Goal LDL to be below 100 (3) COPD (chronic obstructive pulmonary disease): Comment: PATIENT DOES HAVE HISTORY OF COUGH AND SHORTNESS OF BREATH ON EXERTION. HAS PAST HISTORY OF SMOKING . CT SCAN OF THE CHEST SHOWS, PULMONARY EMPHYSEMA. THESE FINDINGS ARE CONSISTENT WITH CHRONIC OBSTRUCTIVE PULMONARY DISEASE, EVEN THOUGH THE PULMONARY FUNCTION TEST DOES NOT SHOW ANY SIGNIFICANT OBSTRUCTIVE COMPONENT. I THINK THAT MAY BE BECAUSE HE IS USING BREO ALREADY. Code(s): J44.9 - Chronic obstructive pulmonary disease, unspecified Category: Medical Qualifiers: COPD type: emphysema Emphysema type: centrilobular Qualified Code(s): J43.2 - Centrilobular emphysema Plan: The patient has a history of COPD diagnosed in 2018, initially attributed to smoking, which he has since quit. He is currently on maintenance inhalers and oxygen therapy to manage symptoms. He reports his breathing has been much better since starting supplemental oxygen therapy daily.. Cardiopulmonary rehabilitation was discussed as a potential intervention to improve respiratory function. (4) DMII (diabetes mellitus, type 2): Code(s): E11.9 - Type 2 diabetes mellitus without complications Category: Medical Qualifiers: Diabetes mellitus complication status: with hyperglycemia Diabetes mellitus detention insulin use: without detention use Qualified Code(s): E11.65 - Type 2 diabetes mellitus with hyperglycemia Plan: Patient's type 2 diabetes suboptimally controlled. He has a complicated case as he is requiring oral prednisone at this time. Will add on preprandial insulin to help regulate his sugar a bit better. Goal A1c is to be below 7.0 (5) Hypertension: Code(s): I10 - Essential (primary) hypertension Category: Medical Qualifiers: Hypertension type: primary hypertension Qualified Code(s): I10 - Essential (primary) hypertension Plan: Patient's blood pressure acceptable today in office. Will continue current dose of lisinopril with goal blood pressure to remain b elow 140/90 (6) HLD (hyperlipidemia): Code(s): E78.5 - Hyperlipidemia, unspecified Category: Medical Qualifiers: Hyperlipidemia type: mixed hyperlipidemia Qualified Code(s): E78.2 - Mixed hyperlipidemia Plan: Most recent labs showing an elevated LDL above 100. Will add on atorvastatin 10 mg to help reduce his cardiovascular risk. His goal LDL is to be below 100. Medications: New insulin lispro (Admelog SoloStar U-100 Insulin lispro) 16 units (0.16 mL) subcut TID 15 mL 1RF 30 days E11.65 - Type 2 diabetes mellitus with hyperglycemia atorvastatin (Lipitor) 10 mg PO DAILY 90 tabs 1RF 90 days E78.2 - Mixed hyperlipidemia blood-glucose,deputy coroner investigator,cont (FreeStyle Viet 3 [place]art) As directed 1 ea 1RF E11.65 - Type 2 diabetes mellitus with hyperglycemia blood-glucose sensor (FreeStyle Viet 3 Sensor device) As directed 2 ea 3RF E11.65 - Type 2 diabetes mellitus with hyperglycemia Refilled pen needle, diabetic As directed once per day 100 ea 3RF E11.9 - Type 2 diabetes mellitus without complications
[2025-09-02 15:08] VITALS: BP 120/70; PULSE 97; TEMP 36.2; O2SAT 94; BMI 26.6
--- OUTSIDE RECORDS SUMMARY | 2025-09-02 22:12 | XMS_ITS | Clinical Summary ---
Author Organization [facility] ity Address [address] [place] [id number] Care Team Providers Care Finance Intern Name Role Phone Unavailable Primary Care Provider [...]
== END 2025-09-02 16:06 | disposition home or self-care (01) ==
LOC: HO.HMCH 14:34
PROVIDERS: PCP Physician Assistant; Visit Provider Physician Assistant
DX: K51.311 Ulcerative (chronic) rectosigmoiditis with rectal bleeding (principal); I50.23 Acute on chronic systolic (congestive) heart failure; J43.2 Centrilobular emphysema; E11.65 Type 2 diabetes mellitus with hyperglycemia; I10 Essential (primary) hypertension; E78.2 Mixed hyperlipidemia

== ENCOUNTER → 2025-09-02 14:34 | Outpatient (BNVA) | payer MEDICARE, MEDICAID, SELFPAY | PROVIDERS: PCP Physician Assistant; Visit Provider Physician Assistant | DX: K51.311 Ulcerative (chronic) rectosigmoiditis with rectal bleeding (principal); I50.23 Acute on chronic systolic (congestive) heart failure; J43.2 Centrilobular emphysema; E11.65 Type 2 diabetes mellitus with hyperglycemia; I10 Essential (primary) hypertension; E78.2 Mixed hyperlipidemia | CPT/HCPCS: 99212 ==